=== PATIENT | male | born 1985 | race Caucasian/White ===

== ENCOUNTER 2018-01-06 19:03 | Emergency (ER) | payer OTHER, SELFPAY ==
[2018-01-06 19:08] VITALS: BP 146/83; PULSE 90; RESP 18; TEMP 36.7; O2SAT 99; BMI 29.5
--- NOTE | 2018-01-06 19:36 | ED_ITS ---
HPI - Back Pain/Injury General Chief Complaint: Back Pain/Injury Stated Complaint: BACK PAIN Time Seen by Provider: 01/06/18 19:27 Source: patient and RN notes reviewed Limitations: no limitations History of Present Illness HPI Narrative: Patient is a 32-year-old male who presents with ongoing back pain and left leg numbness. He had surgery in October with Dr. wang he developed a subcutaneous hematoma which eventrally did drain. He has had ongoing numbness in his left leg since even before the surgery. Over the past week he has had increased weakness in his 2nd 3rd and 4th toes. He started working again and sitting at a desk for long periods of time along with sitting in the car. He was seen by Dr. wang this week who is aware of the weakness in his toes. He has had some urinary retention today, but able to urinate. No fever or chills. MD Complaint: back pain Onset (ago): week(s) Location: lumbar spine Radiation: left leg Related Data Home Medications Medication Instructions Recorded Confirmed gabapentin 600 mg PO BID 01/06/18 01/06/18 Previous Rx's Medication Instructions Recorded hydrocodone-acetaminophen [[place]] 2 tab PO Q6H PRN #14 tab 01/06/18 prednisone 20 mg PO DAILY #5 tab 01/06/18 Allergies Allergy/AdvReac Type Severity Reaction Status Date / Time bee venom protein (honey bee) Allergy Unknown Verified 01/06/18 19:12 [BEE VENOM PROTEIN (HONEY BEE)] Tetanus Vaccines and Toxoid Allergy Unknown Verified 01/06/18 19:12 [TETANUS VACCINES AND TOXOID] Review of Systems Review of Systems All systems reviewed & are unremarkable except as noted in HPI and below Constitutional Denies chills, Denies fever(s), Denies lethargy and Denies weakness Cardiovascular Denies chest pain, Denies irregular heart rhythm, Denies lightheadedness, Denies palpitations, Denies dyspnea, Denies dyspnea on exertion and Denies orthopnea Respiratory Denies cough, Denies dyspnea, Denies dyspnea on exertion and Denies wheezing Gastrointestinal Gastrointestinal: Denies abdominal pain, Denies change in bowel habits, Denies diarrhea, Denies nausea and Denies vomiting Genitourinary Comments: Urinary retention Musculoskeletal Reports as per HPI Integumentary/Breasts Comments: Swelling at incision site from hematoma seems to be improving Neurologic Reports radicular pain (Left leg), Reports sensory deficit (Left leg) and Denies weakness Endocrine Denies palpitations Allergic/Immunologic Denies wheezing PFSH Surgical History S/P laminectomy (Acute) Social History Smoking Status: Current every day smoker Exam Const General: cooperative and well developed Nutritional Appearance: well nourished Orientation: alert, awake, oriented x3 and not confused Neck Neck: normal visual inspection, trachea midline, No lymphadenopathy, No midline deformity and No JVD Lymphatic: No lymphedema Resp Effort & Inspection: normal respiratory effort, able to speak in complete sentences, no respiratory distress and no use of accessory muscles Auscultation: clear to auscultation bilaterally, no rales, no rhonchi and no wheezes Cardio Rate: regular rate Rhythm: regular rhythm Heart Sounds: no click, no gallops, no murmurs and no rubs Pulses: normal peripheral pulses Back/Spine/Pelvis Thoracic/Lumbar Spine: surgical scar(s) present (mild swelling at site ) and No lumbar spinal tenderness Other: He is actually tender across his lower back more on the left than the right no rales vertebral tenderness or step-off. Skin General: No erythema and scars (Lumbar) Rashes: no rashes Other: His incision site is clean and dry there is of small amount of swelling which patient says has gone down a lot. MDM - Back Pain/Injury MDM Narrative Medical decision making narrative: The patient's pain has improved some. Mild leukocytosis no fever very minimal elevation of CRP Wanted an MRI unfortunately not available. He is having worsening ongoing symptoms but no urinary retention or urinary incontinence. He also does not have saddle anesthesia. Not concerned for cauda equina or epidural abscess at this time. CT confirms that he does have some narrowing. L4-L5 and L5-S1 neural foraminal narrowing. Patient says that they have known about this since before the surgery. At this time patient okay to discharge home follow up with Orthopedics and get outpatient MRI. Medical Records Attestation: I reviewed the patient's medical records. Lab Data Attestation: I reviewed the patient's lab results. Result diagrams: 01/06/18 20:30 01/06/18 20:30 Lab Results 01/06/18 01/06/18 01/06/18 Range/Units 20:30 20:30 20:35 WBC 11.4 H (4.5-11.0) X10^3/uL RBC 4.89 (4.5-5.9) X10^6/uL Hgb 14.5 (13.5-17.5) g/dL Hct 42.0 (41-53) % MCV 85.9 (80-100) fL MCH 29.6 (26-34) PG MCHC 34.5 (30-36) % RDW 13.4 (11.6-14.8) % Plt Count 190 (150-400) X10^3/uL Neut % (Auto) 78.4 H (50-75) % Lymph % (Auto) 13.1 L (25-40) % [place] % (Auto) 6.4 (3-14) % Eos % (Auto) 1.7 L (2-4) % Baso % (Auto) 0.4 (0-2) % Neut # (Auto) 8900 H (4624-0101) /uL ESR 4 (0-15) MM/HR Sodium 142 (137-145) mmol/L Potassium 4.4 (3.4-5.1) mmol/L Chloride 100.0 (98-107) mmol/L Carbon Dioxide 34.0 H (22-32) mmol/L BUN 20.0 (9-20) mg/dL Creatinine 1.10 (0.66-1.25) mg/dL Estimated GFR > 60.0 (>60) mL/min BUN/Creatinine Ratio 18.2 (6-22) Glucose 109 H (70-100) mg/dL Calcium 9.1 (8.4-10.2) mg/dL Total Bilirubin 0.5 (0.2-1.3) mg/dL AST 51 (17-59) IU/L ALT 85 H (21-72) IU/L Alkaline Phosphatase 67 (38-126) U/L C-Reactive Protein 1.8 H (<1.0) mg/dL Total Protein 7.1 (6.3-8.2) g/dL Albumin 3.9 (3.5-5.0) g/dL Globulin 3.2 (1.7-4.1) g/dL Albumin/Globulin Ratio 1.2 (1.0-2.8) Urine Color Yellow Urine Appearance Clear Urine pH 6.0 (4.5-8.0) Ur Specific [place] 1.015 (1.000-1.035) Urine Protein Negative (NEGATIVE) Urine Glucose (UA) Negative (NEGATIVE) g/dL Urine Ketones Negative (NEGATIVE) Urine Occult Blood Negative (NEGATIVE) Urine Nitrate Positive H (NEGATIVE) Urine Bilirubin Negative (NEGATIVE) Urine Urobilinogen 0.2 (0.2) E.U./dL Ur Leukocyte Esterase Negative (NEGATIVE) Amorphous Sediment 2+ Ur Culture Indicated? Specimen cultured Micro UA Comment Not Reportable Imaging Data CT lumbar with contrast: Radiologist's impression: TECHNIQUE: After the administration of intravenous Isovue contrast, 3 mm thick sections acquired through the levels of interest. Sagittal and coronal reformats were then constructed. For radiation dose reduction, the following was used: automated exposure control. COMPARISON: None. FINDINGS: Image quality: Excellent. Bones: Postsurgical changes compatible with L5-S1 left laminotomy noted. There is normal alignment and curvature. Fracture or subluxation. Multilevel degenerative changes are noted. L4-L5 and L5-S1 facet arthropathy. No definite central stenosis. Degenerative changes may be causing significant bilateral L4-L5 and L5-S1 neural foraminal narrowing. Soft tissues: No paraspinous fluid collections., Aorta is normal caliber. Visualized portions of the kidneys are normal. Visualized bowel loops are normal. IMPRESSION: 1. Postsurgical changes compatible with L5-S1 left laminotomy. 2. No paraspinous fluid collection or paraspinous abscess. Please note epidural abscess or epidural hematoma cannot be clearly excluded by CT imaging. 3. Possible significant bilateral L4-L5 and L5-S1 neuroforaminal narrowing. Recommend MRI of the lumbar spine for definitive characterization when clinically feasible. 4. No fracture. No acute osseous lesion. Dictated by: Sheri Poole MD, PhD on 01/06/2018 at 21:45 Course Orders Ordered: ED Orders 01/06/18 20:30 C-Reactive Protein Quant Stat Complete Blood Count AUTO DIFF Stat Comprehensive Metabolic Panel Stat Erythrocyte Sedimentation Rate Stat 01/06/18 20:35 Urinalysis and Microscopic Stat 01/06/18 20:36 CT lumbar spine w con Stat Discontinued Medications Hydrocodone Bitart/Acetaminophen (Vicodin Prepack) 1 bottle MISC SEEINSTR ONE Stop: 01/06/18 22:20 Last Admin: 01/06/18 22:31 Dose: 1 bottle Dexamethasone (Decadron) 10 mg IV NOW ONE Stop: 01/06/18 20:30 Last Admin: 01/06/18 20:58 Dose: 10 mg Morphine Sulfate (Morphine) 4 mg IV NOW ONE Stop: 01/06/18 20:30 Last Admin: 01/06/18 20:58 Dose: 4 mg Last Vital Signs Temp 98.1 F 01/06/18 19:08 Pulse 62 01/06/18 21:59 Resp 12 01/06/18 21:59 BP 104/56 L 01/06/18 21:59 Pulse Ox 100 01/06/18 21:59 Discharge Plan Departure Patient Disposition: Home, Self-Care Clinical Impression: Radiculopathy due to lumbar intervertebral disc disorder Discharge Date/Time: 01/06/18 22:52 Interventions: ED Discharge Assessment Last Done: 01/06/18 22:48 Instructions: Lumbar Radiculopathy Activity Restrictions/Additional Instructions: *You have been diagnosed with lumbar radiculopathy the with postoperative pain *What to do: Will require outpatient MRI with Orthopedics. *Take medications as directed -increase gabapentin to 3 times a day *Follow up with your primary care provider in 2-3 days, call Orthopedics 1st thing tomorrow morning for follow-up as soon as possible *Return to ER if you should have loss of urine or inability to urinate, fever more than 100.4, increasing weakness or any new, worsening or concerning symptoms Prescriptions: New hydrocodone-acetaminophen [[place]] 5-325 mg tablet 2 tab PO Q6H PRN (Reason: pain, severe) Qty: 14 RF: 0 prednisone 20 mg tablet 20 mg PO DAILY Qty: 5 RF: 0 No Action gabapentin 600 mg Tablet 600 mg PO BID RF: 0 Referrals: Jer Hook MD [Primary Care Provider] - (Needs MRI. Need appointment [facility]) Stand Alone Forms: Work/School Restrictions
--- NOTE | 2018-01-06 20:36 | DI.CT.S_ITS ---
PROCEDURE: CT LUMBAR SPINE W CON INDICATIONS: increased pain and weakness, left leg, post surgery 11/14 TECHNIQUE: After the administration of intravenous Isovue contrast, 3 mm thick sections acquired through the levels of interest. Sagittal and coronal reformats were then constructed. For radiation dose reduction, the following was used: automated exposure control. COMPARISON: None. FINDINGS: Image quality: Excellent. Bones: Postsurgical changes compatible with L5-S1 left laminotomy noted. There is normal alignment and curvature. Fracture or subluxation. Multilevel degenerative changes are noted. L4-L5 and L5-S1 facet arthropathy. No definite central stenosis. Degenerative changes may be causing significant bilateral L4-L5 and L5-S1 neural foraminal narrowing. Soft tissues: No paraspinous fluid collections., Aorta is normal caliber. Visualized portions of the kidneys are normal. Visualized bowel loops are normal. IMPRESSION: 1. Postsurgical changes compatible with L5-S1 left laminotomy. 2. No paraspinous fluid collection or paraspinous abscess. Please note epidural abscess or epidural hematoma cannot be clearly excluded by CT imaging. 3. Possible significant bilateral L4-L5 and L5-S1 neuroforaminal narrowing. Recommend MRI of the lumbar spine for definitive characterization when clinically feasible. 4. No fracture. No acute osseous lesion. Dictated by: Sheri Poole MD, PhD on 01/06/2018 at 21:45 Approved by: Sheri Poole MD, PhD on 01/06/2018 at 21:51
[2018-01-06 20:40] LABS: Add Manual Diff / Slide Review NO; Basophils Percent Auto 0.4 % (0-2); Eosinophils Percent Auto 1.7 % (2-4); Hemoglobin 14.5 g/dL (13.5-17.5); Lymphocytes Percent Auto 13.1 % (25-40); Mean Corpuscular HGB Conc 34.5 % (30-36); Mean Corpuscular Hemoglobin 29.6 PG (26-34); Mean Corpuscular Volume 85.9 fL (80-100); Monocytes Percent Auto 6.4 % (3-14); Neutrophils Absolute Auto 8900 /uL (3000-5900); Neutrophils Percent Auto 78.4 % (50-75); Platelet Count 190 X10^3/uL (150-400); Red Blood Cell Count 4.89 X10^6/uL (4.5-5.9); Red Cell Distribution Width 13.4 % (11.6-14.8); White Blood Cell Count 11.4 X10^3/uL (4.5-11.0)
[2018-01-06 20:53] LABS: Alanine Aminotransferase 85 IU/L (21-72); Albumin 3.9 g/dL (3.5-5.0); Albumin Globulin Ratio 1.2 (1.0-2.8); Alkaline Phosphatase 67 U/L (38-126); Aspartate Aminotransferase 51 IU/L (17-59); BUN Creatinine Ratio 18.2 (6-22); Bilirubin Total 0.5 mg/dL (0.2-1.3); C-Reactive Protein Quant 1.8 mg/dL (<1.0); Calcium 9.1 mg/dL (8.4-10.2); Estimated Glomerular Filt Rate > 60.0 mL/min (>60); Globulin 3.2 g/dL (1.7-4.1); Glucose 109 mg/dL (70-100); HEMOLYSIS < 15 (0-50); Potassium 4.4 mmol/L (3.4-5.1); Sodium 142 mmol/L (137-145); Total Protein 7.1 g/dL (6.3-8.2)
[2018-01-06 20:54] LABS: Erythrocyte Sedimentation Rate 4 MM/HR (0-15)
[2018-01-06] MEDS: MORPHINE 4 MG/ML VIAL IV (20:58)
[2018-01-06] MEDS: DEXAMETHASONE 10 MG/ML VIAL IV (20:58)
[2018-01-06 21:47] LABS: Appearance Urine UA CLEAR; Bilirubin Urine UA NEGATIVE (NEGATIVE); Color Urine UA YELLOW; Glucose Urine UA NEGATIVE (NEGATIVE); Ketones Urine UA NEGATIVE (NEGATIVE); Leukocyte Esterase Urine UA NEGATIVE (NEGATIVE); Nitrite Urine UA POSITIVE (NEGATIVE); Occult Blood Urine UA NEGATIVE (NEGATIVE); Protein Urine UA NEGATIVE (NEGATIVE); Specific Gravity Urine UA 1.015 (1.000-1.035); Urobilinogen Urine UA 0.2 E.U./dL (0.2)
[2018-01-06 21:59] VITALS: BP 104/56; PULSE 62; RESP 12; O2SAT 100
[2018-01-06 22:00] LABS: Amorphous Sediment Urine 2+
[2018-01-06 22:01] LABS: Culture Indicated Urine Specimen Cultured
[2018-01-06] MEDS: HYDROCODONE/ACET 5/325 PREPACK 1 BOTTLE MISC (22:31)
== END 2018-01-06 22:52 | disposition home or self-care (01) ==
PROVIDERS: Emergency Provider Emergency Medicine; PCP Orthopaedic Surgery
DX: M51.16 Intervertebral disc disorders with radiculopathy, lumbar region (principal)
CPT/HCPCS: 36591; 51798; 72132; 80053; 81001; 85025; 85651; 86140; 87086; 96374; 96375; 99283; 99284; J1100; J2270; Q9967

== ENCOUNTER → 2018-08-08 06:16 | Outpatient (CLI) | payer OTHER, SELFPAY ==
--- NOTE | 2018-08-08 | DI.MRI.S_ITS ---
PROCEDURE: MR LUMBAR SPINE WO/W CON INDICATIONS: INTERVETEBRAL DISC DISORDER WITH RADICULOPATHY LUM TECHNIQUE: Noncontrast sagittal T1 spin echo and T2 fast spin echo, sagittal STIR, axial T1 and T2 fast spin echo through the lumbar spine. In cases with scoliosis, additional coronal T2 fast spin echo may be performed. After the administration of contrast, sagittal and axial T1 spin echo with fat saturation through the lumbar spine. COMPARISON: [facility] [place], CR, XR LUMBAR SPINE 2 OR 3 VIEWS, 10/06/2017, 9:21. [facility] [place], MR, MR LUMBAR SPINE WITH/WITHOUT CONTRAST, 01/18/2018, 11:47. [facility], CT, CT LUMBAR SPINE W CON, 01/06/2018, 21:15. [facility], MR, MR LUMBAR SPINE WITHOUT CONTRAST, 10/22/2017, 12:49. FINDINGS: Image quality: Excellent. Alignment and curvature: There is grade one anterolisthesis at L4-L5. Marrow: Marrow is of normal overall signal. No acute vertebral body compression fractures. There are Schmorl's nodes scattered in the lower thoracic spine (inferior endplate of T11 and T12 ) and lumbar spine (superior endplate of L1 and L2). No suspicious marrow enhancement. Spinal cord: Conus medullaris terminates at the L1 level. Visualized spinal cord demonstrates normal signal, without suspicious enhancement. Paraspinous soft tissues: No paravertebral masses or abnormal enhancement. T12-L1: Mild loss of disc height and disc signal. There is mild posterior disc bulge and small left posterior paramedian disc protrusion. Mild central canal stenosis, changed. No foraminal stenosis. L1-L2: Mild loss of disc height and disc signal. There is mild posterior disc bulge. Mild central canal stenosis, changed. No foraminal stenosis. L2-L3: Mild loss of disc height and disc desiccation. There is diffuse posterior disc bulge. Mild bilateral facet arthropathy. The central canal is mildly narrowed. Mild bilateral foraminal stenosis. There is no significant change from the last exam. L3-L4: Preserved disc height and disc signal. There is minimal posterior disc bulge. Moderate bilateral facet arthropathy and mild hypertrophy of ligamentum flavum. The central canal is patent. Moderate bilateral foraminal stenosis, slightly increased compared to the last exam. L4-L5: Mild loss of disc height and disc desiccation. There is broad posterior disc bulge. Mild bilateral facet arthropathy. The central canal is mildly narrowed. Moderate bilateral foraminal stenosis. Mildly increased central canal and foraminal stenosis compared to the last exam. L5-S1: Left hemilaminectomy. Mild loss of disc height and moderate disc desiccation. There is broad posterior disc bulge and disc protrusion. There is a posterior central annular fissure. Mild to-moderate bilateral facet arthropathy. The central canal is [id number] narrowed, unchanged. Moderate-to severe bilateral foraminal stenosis, unchanged. IMPRESSION: 1. Multilevel degenerative disc disease and facet arthropathy as described. 2. Multilevel central canal stenosis, [id number] at L5-S1 and mild at T12-L1, L1-L2, L2-L3 and L4-L5. 3. Multilevel foraminal stenosis as described, [id number] at L5-S1 bilaterally, and moderate at L2-L3 bilaterally, L3-L4 bilaterally and L4-L5 bilaterally. Dictated by: Cyn Suarez M.D. on 08/08/2018 at 14:39 Approved by: Cyn Suarez M.D. on 08/08/2018 at 15:03
== END ==
PROVIDERS: PCP Orthopaedic Surgery; Visit Provider Orthopaedic Surgery
DX: M51.16 Intervertebral disc disorders with radiculopathy, lumbar region (principal); M51.17 Intervertebral disc disorders with radiculopathy, lumbosacral region; M47.26 Other spondylosis with radiculopathy, lumbar region; M47.27 Other spondylosis with radiculopathy, lumbosacral region; M48.05 Spinal stenosis, thoracolumbar region; M48.07 Spinal stenosis, lumbosacral region; M48.061 Spinal stenosis, lumbar region without neurogenic claudication
CPT/HCPCS: 72158; A9579

== ENCOUNTER 2018-10-02 03:48 | Emergency (ER) | payer OTHER, SELFPAY | END 2018-10-02 04:11 | disposition left against medical advice (07) | LOC: ED 03:57 | PROVIDERS: PCP Orthopaedic Surgery | DX: R89.9 Unspecified abnormal finding in specimens from other organs, systems and tissues (principal) | CPT/HCPCS: 99282 ==

== ENCOUNTER 2019-02-15 12:21 | Emergency (ER) | payer SELFPAY ==
[2019-02-15 12:29] VITALS: BP 132/80; TEMP 36.8
[2019-02-15 12:35] VITALS: BMI 29.8
--- NOTE | 2019-02-15 12:36 | ED.ABDPAIN ---
HPI - Abdominal Pain <ALEXSANDER Pierce - Last Filed: 02/15/19 14:45> General Chief Complaint: Abdominal Pain Stated Complaint: Difficulty defecating Time Seen by Provider: 02/15/19 12:29 Source: patient Mode of arrival: ambulatory Limitations: no limitations History of Present Illness HPI narrative: 33-year-old male with a history of back surgery, presents emergency department today stating that 1 month ago he defecated a piece of metal that he in this from his back surgery, states the metal piece was about 3in. in length. Since then he has been having increasing constipation with mucousy and bright red blood in his stools. Associated left lower quadrant 10/10 cramping abdominal pain that occurs before defecation and is worse after defecation. Denies swelling or pain in his testicles, vomiting, nausea, chest pain, shortness of breath, episodes diarrhea, or headaches. MD complaint: abdominal pain Onset (ago): week(s) Pain Consistency: intermittent Location: LLQ Severity: moderate Severity scale (1-10): >10 Quality: cramping Radiation: none Exacerbating factors: bowel movement Related Data Home Medications Medication Instructions Recorded Confirmed gabapentin 600 mg PO BID 01/06/18 02/15/19 Allergies Allergy/AdvReac Type Severity Reaction Status Date / Time bee venom protein (honey bee) Allergy Unknown Verified 01/06/18 19:12 [BEE VENOM PROTEIN (HONEY BEE)] Tetanus Vaccines and Toxoid Allergy Unknown Verified 01/06/18 19:12 [TETANUS VACCINES AND TOXOID] Review of Systems <ALEXSANDER Pierce - Last Filed: 02/15/19 14:45> Review of Systems REVIEW OF SYSTEMS: GENERAL: Denies fever or chills. HENT: No head trauma, hearing loss or sore throat. EYES: No loss of vision, double vision, eye pain, or irritation. CARDIOVASCULAR: No chest pain or syncope. RESPIRATORY: No shortness of breath or cough. GASTROINTESTINAL: Complains of abdominal pain, see HPI. GENITOURINARY: No flank pain or dysuria. No testicle swelling. See HPI. MUSCULOSKELETAL: No pain, weakness, or deformities. INTEGUMENTARY: No rash, lesions, or pruritus. NEURO: No numbness, tingling, memory loss, or confusion. PSYCH: No behavior or mood changes. PFSH <ALEXSANDER Pierce - Last Filed: 02/15/19 14:45> Surgical History S/P laminectomy (Acute) Social History Smoking Status: Current every day smoker Social History Smoking Status: Current every day smoker Exam <ALEXSANDER Pierce - Last Filed: 02/15/19 14:45> Initial Vital Signs Initial Vital Signs: Vital Signs Temperature 98.3 F 02/15/19 12:29 Blood Pressure 132/80 02/15/19 12:29 PHYSICAL EXAMINATION: GENERAL: Well groomed, alert, and cooperative Answers questions promptly and appropriately. Vital signs noted. HENT: Normocephalic, atraumatic. EYES: Conjunctiva pink, sclera white, no periorbital swelling. Patient tearful during exam. LYMPH: No lymphadenopathy. CHEST: Normal to inspection and without deformities. CARDIOVASCULAR: S1 and S2 sounds normal. Regular rate and rhythm, no murmurs, clicks, or bruits. No pedal edema. RESPIRATORY: Normal respiratory rate, trachea midline, airway patent. No stridor, nasal flaring or accessory muscle use. Lungs are clear in all greer without wheeze, rhonchi, or crackles. GASTROINTESTINAL: Bowel sounds normoactive. Tenderness with deep palpation to left lower quadrant, no rebound tenderness, no right lower quadrant tenderness. No masses palpated. RECTAL: No hemorrhoids observed or palpated, no fissures or lesions. Patient reported significant pain during rectal exam, no stool was palpated. RN was present during rectal exam. Patient gives stool seen, 2 small round hard masses stool were given, the bladder mucus was seen on stool. EXAM: No hernias palpated along groin. Testicles will not red or swollen, no tenderness. RN was present during exam. MUSCULOSKELETAL: Normal gait and coordination. Equal tone and mass bilaterally. EXTREMITIES: CMS intact. Moves all extremities independently. SKIN: Warm, dry, soft, appropriate color for ethnicity. No lesions, rashes, or wounds. NEURO: Alert and Oriented X 3. Good coordination. No ataxia, or sensory deficits, or cognitive issues. PSYCH: Appropriate affect, the patient tearful. <Darrell [place], DO - Last Filed: 02/15/19 18:05> Initial Vital Signs Initial Vital Signs: Vital Signs Temperature 98.3 F 02/15/19 12:29 Blood Pressure 132/80 02/15/19 12:29 Course <Lou HagerALEXSANDER [place] - Last Filed: 02/15/19 14:45> Orders Ordered: ED Orders 02/15/19 13:15 Complete Blood Count AUTO DIFF Stat Comprehensive Metabolic Panel Stat Lipase Stat 02/15/19 13:20 Stool Culture Stat 02/15/19 13:24 CT abdomen pelvis w con Stat Discontinued Medications Sodium Chloride (Normal Saline 0.9%) 1,000 mls @ 150 mls/hr IV CONT ADEBAYO Last Infusion: 02/15/19 14:42 Dose: 0 mls/hr Admin: 02/15/19 13:20 Dose: 150 mls/hr Ketorolac Tromethamine (Toradol) 30 mg IV NOW ONE Stop: 02/15/19 14:07 Last Admin: 02/15/19 14:09 Dose: 30 mg Morphine Sulfate (Morphine) 2 mg IV NOW ONE Stop: 02/15/19 13:30 Last Admin: 02/15/19 13:32 Dose: 2 mg Reevaluation(s) Reevaluation #1: She reports feeling slightly better after morphine and Toradol. Understands follow-up instructions. Consultations Consultation #1: Patient staffed with Dr. Martinez. Vital Signs - 8 hr 02/15/19 12:29 02/15/19 13:46 02/15/19 14:35 Temperature 98.3 F Pulse Rate 91 H 89 Respiratory Rate 16 16 Blood Pressure 105/60 Blood Pressure [Right Arm] 132/80 117/75 Pulse Oximetry 98 <Darrell Martinez DO - Last Filed: 02/15/19 18:05> Orders Ordered: ED Orders 02/15/19 13:15 Complete Blood Count AUTO DIFF Stat Comprehensive Metabolic Panel Stat Lipase Stat 02/15/19 13:20 Stool Culture Stat 02/15/19 13:24 CT abdomen pelvis w con Stat Discontinued Medications Sodium Chloride (Normal Saline 0.9%) 1,000 mls @ 150 mls/hr IV CONT ADEBAYO Last Infusion: 02/15/19 14:42 Dose: 0 mls/hr Admin: 02/15/19 13:20 Dose: 150 mls/hr Ketorolac Tromethamine (Toradol) 30 mg IV NOW ONE Stop: 02/15/19 14:07 Last Admin: 02/15/19 14:09 Dose: 30 mg Morphine Sulfate (Morphine) 2 mg IV NOW ONE Stop: 02/15/19 13:30 Last Admin: 02/15/19 13:32 Dose: 2 mg Vital Signs - 8 hr 02/15/19 12:29 02/15/19 13:46 02/15/19 14:35 Temperature 98.3 F Pulse Rate 91 H 89 Respiratory Rate 16 16 Blood Pressure 105/60 Blood Pressure [Right Arm] 132/80 117/75 Pulse Oximetry 98 MDM - Abdominal Pain <ALEXSANDER Pierce - Last Filed: 02/15/19 14:45> Medical Records Attestation: I reviewed the patient's medical records. Lab Data Attestation: I reviewed the patient's lab results. Result diagrams: 02/15/19 13:15 02/15/19 13:15 Lab Results 02/15/19 02/15/19 Range/Units 13:15 13:15 WBC 8.7 (4.5-11.0) X10^3/uL RBC 4.99 (4.5-5.9) X10^6/uL Hgb 13.8 (13.5-17.5) g/dL Hct 42.9 (41-53) % MCV 85.8 (80-100) fL MCH 27.6 (26-34) PG MCHC 32.2 (30-36) % RDW 13.5 (11.6-14.8) % Plt Count 216 (150-400) X10^3/uL Neut % (Auto) 76.0 H (50-75) % Lymph % (Auto) 14.8 L (25-40) % Carson % (Auto) 6.6 (3-14) % Eos % (Auto) 2.5 (2-4) % Baso % (Auto) 0.1 (0-2) % Neut # (Auto) 6600 (8713-2524) /uL Lymph # (Auto) 1300 (4347-7210) /uL Carson # (Auto) 600 (0-900) /uL Eos # (Auto) 200 (0-450) /uL Baso # (Auto) 0 (0-100) /uL Sodium 142 (137-145) mmol/L Potassium 4.4 (3.4-5.1) mmol/L Chloride 103 (98-107) mmol/L Carbon Dioxide 29 (22-32) mmol/L BUN 16 (9-20) mg/dL Creatinine 0.90 (0.66-1.25) mg/dL Estimated GFR > 60.0 (>60) mL/min BUN/Creatinine Ratio 17.8 (6-22) Glucose 98 (70-100) mg/dL Calcium 9.0 (8.4-10.2) mg/dL Total Bilirubin 0.6 (0.2-1.3) mg/dL AST 43 (17-59) IU/L ALT 56 (21-72) IU/L Alkaline Phosphatase 67 (38-126) U/L Total Protein 7.1 (6.3-8.2) g/dL Albumin 4.0 (3.5-5.0) g/dL Globulin 3.1 (1.7-4.1) g/dL Albumin/Globulin Ratio 1.3 (1.0-2.8) Lipase 49 (23-300) U/L Imaging Data CT scan - abdomen: Radiologist's impression: , [place] [address] CT Scan Report Signed Patient: Jericho Parsons [facility]#: [id number] : 1985Acct:[id number] Age/Sex: 33 / MDate of Service: 02/15/19 Loc: ED Accession Number: [id number] Procedure: CT abdomen pelvis w con Ordering Provider: Lou Amado PROCEDURE: CT ABDOMEN PELVIS W CON INDICATIONS: RLQ abd pain worse with BM TECHNIQUE: After the administration of intravenous contrast, 5 mm thick sections acquired from the diaphragm to the symphysis. 5 mm coronal and sagittal reformats were acquired. For radiation dose reduction, the following was used: automated exposure control, adjustment of mA and/or kV according to patient size. COMPARISON: [facility], CT, ABDOMEN/PELVIS WITH CONTRAST, 04/19/2017, 14:58. FINDINGS: Image quality: Excellent. ABDOMEN: Lung bases: Lung bases are clear. Heart size is normal. Solid organs: Liver is normal in size and enhancement. Gallbladder is unremarkable. There is mild central intrahepatic biliary ductal prominence, increased from the previous study. No pancreatic mass. No pancreatic ductal dilatation. The pancreas enhances normally. Spleen is normal in size and enhancement. No adrenal nodules. Kidneys demonstrate normal size and enhancement, without hydronephrosis. Peritoneum and bowel: Bowel loops demonstrate normal wall thickness and caliber. No free fluid or air. Moderately large fecal debris in the colon. No findings suspicious for acute appendicitis. Nodes and vessels: No retroperitoneal or mesenteric adenopathy by size criteria. Aorta and inferior vena cava are normal in size. Miscellaneous: No ventral hernias. PELVIS: Genitourinary: Bladder wall thickness is normal. Miscellaneous: No inguinal hernias or adenopathy. Bones: Again noted are multiple right iliac exostoses, unchanged. No vertebral body compression fractures. IMPRESSION: 1. Moderately large fecal debris. 2. Mildly prominent central intrahepatic biliary ducts, increased from the previous study, without evidence of any obstructing mass lesion. 3. Stable right iliac exostoses. Dictated by: Shravan Roa M.D. on 02/15/2019 at 13:48 Approved by: Shravan Roa M.D. on 02/15/2019 at 13:54 MDM Narrative Medical decision making narrative: Patient's history about swallowing a 3in piece of metal remains questionable. I suspect his pain is caused by constipation as evidenced by his hard stool, imaging on CT, and history and physical. However, I cannot rule out colitis, lesions, or food allergies, so further testing was suggested to the patient. Stool culture is pending to look for parasites, however have a low suspicion of this due to complaint of constipation versus diarrhea. While CT imaging shows an increased dilation of the biliary duct since last scan, patient does not exhibit right upper quadrant pain and liver enzymes and lipase were within normal limits, additionally no obstruction was seen on CT. Less likely diverticulitis due to lack of findings on CT, lack of fever, lack white blood cell count, lack of history of diverticulosis. All patient reports blood in stool intermittently, no blood was seen stool sample, hematocrit and hemoglobin remained stable, patient does not exhibit symptoms of low blood volume. <Darrell Martinez DO - Last Filed: 02/15/19 18:05> Lab Data Lab Results 02/15/19 02/15/19 Range/Units 13:15 13:15 WBC 8.7 (4.5-11.0) X10^3/uL RBC 4.99 (4.5-5.9) X10^6/uL Hgb 13.8 (13.5-17.5) g/dL Hct 42.9 (41-53) % MCV 85.8 (80-100) fL MCH 27.6 (26-34) PG MCHC 32.2 (30-36) % RDW 13.5 (11.6-14.8) % Plt Count 216 (150-400) X10^3/uL Neut % (Auto) 76.0 H (50-75) % Lymph % (Auto) 14.8 L (25-40) % Carson % (Auto) 6.6 (3-14) % Eos % (Auto) 2.5 (2-4) % Baso % (Auto) 0.1 (0-2) % Neut # (Auto) 6600 (7674-5908) /uL Lymph # (Auto) 1300 (8863-2450) /uL Carson # (Auto) 600 (0-900) /uL Eos # (Auto) 200 (0-450) /uL Baso # (Auto) 0 (0-100) /uL Sodium 142 (137-145) mmol/L Potassium 4.4 (3.4-5.1) mmol/L Chloride 103 (98-107) mmol/L Carbon Dioxide 29 (22-32) mmol/L BUN 16 (9-20) mg/dL Creatinine 0.90 (0.66-1.25) mg/dL Estimated GFR > 60.0 (>60) mL/min BUN/Creatinine Ratio 17.8 (6-22) Glucose 98 (70-100) mg/dL Calcium 9.0 (8.4-10.2) mg/dL Total Bilirubin 0.6 (0.2-1.3) mg/dL AST 43 (17-59) IU/L ALT 56 (21-72) IU/L Alkaline Phosphatase 67 (38-126) U/L Total Protein 7.1 (6.3-8.2) g/dL Albumin 4.0 (3.5-5.0) g/dL Globulin 3.1 (1.7-4.1) g/dL Albumin/Globulin Ratio 1.3 (1.0-2.8) Lipase 49 (23-300) U/L Discharge Plan Departure Patient Disposition: Home Clinical Impression: Constipation Qualifiers: Constipation type: unspecified constipation type Qualified Code(s): K59.00 - Constipation, unspecified Abdominal pain Qualifiers: Abdominal location: left lower quadrant Qualified Code(s): R10.32 - Left lower quadrant pain Discharge Date/Time: 02/15/19 14:45 Interventions: ED Discharge Assessment Last Done: 02/15/19 14:35 Instructions: DI for Abdominal Pain-Adult, DI for Constipation Activity Restrictions/Additional Instructions: Thank you for entrusting me with your care today. As discussed, your CT scan does not show any alarming findings that would explain the pain you're having. However, it is important to follow up with your primary care provider and or business architect for further testing if your pain continues. I have also ordered a stool culture that will take a few days to come back, if it is positive we will call you. Please take the docusate Colace that you have, at least 1 a day with a large glass of water. This medication will help soften your stool, it is not a laxative so it should not give you crampy abdominal pain. Return to the emergency department if he develops fevers, uncontrolled vomiting, large amount of dark tarry stools, chest pain, or shortness of breath. Prescriptions: No Action gabapentin 600 mg Tablet 600 mg PO BID RF: 0 Referrals: Jer Taveras MD [Non-Staff] - <Darrell Martinez DO - Last Filed: 02/15/19 18:05> Cosign ED Attending Kristian Attestation: I was immediately available in the department for consultation. Documentation has been reviewed. I agree with assessment and plan.
--- NOTE | 2019-02-15 12:39 | ED_ITS ---
HPI - Abdominal Pain <ALEXSANDER Pierce - Last Filed: 02/15/19 14:45> General Chief Complaint: Abdominal Pain Stated Complaint: Difficulty defecating Time Seen by Provider: 02/15/19 12:29 Source: patient Mode of arrival: ambulatory Limitations: no limitations History of Present Illness HPI narrative: 33-year-old male with a history of back surgery, presents emergency department today stating that 1 month ago he defecated a piece of metal that he in this from his back surgery, states the metal piece was about 3in. in length. Since then he has been having increasing constipation with mucousy and bright red blood in his stools. Associated left lower quadrant 10/10 cramping abdominal pain that occurs before defecation and is worse after defecation. Denies swelling or pain in his testicles, vomiting, nausea, chest pain, shortness of breath, episodes diarrhea, or headaches. MD complaint: abdominal pain Onset (ago): week(s) Pain Consistency: intermittent Location: LLQ Severity: moderate Severity scale (1-10): >10 Quality: cramping Radiation: none Exacerbating factors: bowel movement Related Data Home Medications Medication Instructions Recorded Confirmed gabapentin 600 mg PO BID 01/06/18 02/15/19 Allergies Allergy/AdvReac Type Severity Reaction Status Date / Time bee venom protein (honey bee) Allergy Unknown Verified 01/06/18 19:12 [BEE VENOM PROTEIN (HONEY BEE)] Tetanus Vaccines and Toxoid Allergy Unknown Verified 01/06/18 19:12 [TETANUS VACCINES AND TOXOID] Review of Systems <ALEXSANDER Pierce - Last Filed: 02/15/19 14:45> Review of Systems REVIEW OF SYSTEMS: GENERAL: Denies fever or chills. HENT: No head trauma, hearing loss or sore throat. EYES: No loss of vision, double vision, eye pain, or irritation. CARDIOVASCULAR: No chest pain or syncope. RESPIRATORY: No shortness of breath or cough. GASTROINTESTINAL: Complains of abdominal pain, see HPI. GENITOURINARY: No flank pain or dysuria. No testicle swelling. See HPI. MUSCULOSKELETAL: No pain, weakness, or deformities. INTEGUMENTARY: No rash, lesions, or pruritus. NEURO: No numbness, tingling, memory loss, or confusion. PSYCH: No behavior or mood changes. PFSH <ALEXSANDER Pierce - Last Filed: 02/15/19 14:45> Surgical History S/P laminectomy (Acute) Social History Smoking Status: Current every day smoker Social History Smoking Status: Current every day smoker Exam <ALEXSANDER Pierce - Last Filed: 02/15/19 14:45> Initial Vital Signs Initial Vital Signs: Vital Signs Temperature 98.3 F 02/15/19 12:29 Blood Pressure 132/80 02/15/19 12:29 PHYSICAL EXAMINATION: GENERAL: Well groomed, alert, and cooperative Answers questions promptly and appropriately. Vital signs noted. HENT: Normocephalic, atraumatic. EYES: Conjunctiva pink, sclera white, no periorbital swelling. Patient tearful during exam. LYMPH: No lymphadenopathy. CHEST: Normal to inspection and without deformities. CARDIOVASCULAR: S1 and S2 sounds normal. Regular rate and rhythm, no murmurs, clicks, or bruits. No pedal edema. RESPIRATORY: Normal respiratory rate, trachea midline, airway patent. No stridor, nasal flaring or accessory muscle use. Lungs are clear in all greer without wheeze, rhonchi, or crackles. GASTROINTESTINAL: Bowel sounds normoactive. Tenderness with deep palpation to l eft lower quadrant, no rebound tenderness, no right lower quadrant tenderness. No masses palpated. RECTAL: No hemorrhoids observed or palpated, no fissures or lesions. Patient reported significant pain during rectal exam, no stool was palpated. RN was present during rectal exam. Patient gives stool seen, 2 small round hard masses stool were given, the bladder mucus was seen on stool. EXAM: No hernias palpated along groin. Testicles will not red or swollen, no tenderness. RN was present during exam. MUSCULOSKELETAL: Normal gait and coordination. Equal tone and mass bilaterally. EXTREMITIES: CMS intact. Moves all extremities independently. SKIN: Warm, dry, soft, appropriate color for ethnicity. No lesions, rashes, or wounds. NEURO: Alert and Oriented X 3. Good coordination. No ataxia, or sensory deficits, or cognitive issues. PSYCH: Appropriate affect, the patient tearful. <Darrell Martinez DO - Last Filed: 02/15/19 18:05> Initial Vital Signs Initial Vital Signs: Vital Signs Temperature 98.3 F 02/15/19 12:29 Blood Pressure 132/80 02/15/19 12:29 Course <Lou HagerALEXSANDER mont[place] - Last Filed: 02/15/19 14:45> Orders Ordered: ED Orders 02/15/19 13:15 Complete Blood Count AUTO DIFF Stat Comprehensive Metabolic Panel Stat Lipase Stat 02/15/19 13:20 Stool Culture Stat 02/15/19 13:24 CT abdomen pelvis w con Stat Discontinued Medications Sodium Chloride (Normal Saline 0.9%) 1,000 mls @ 150 mls/hr IV CONT ADEBAYO Last Infusion: 02/15/19 14:42 Dose: 0 mls/hr Admin: 02/15/19 13:20 Dose: 150 mls/hr Ketorolac Tromethamine (Toradol) 30 mg IV NOW ONE Stop: 02/15/19 14:07 Last Admin: 02/15/19 14:09 Dose: 30 mg Morphine Sulfate (Morphine) 2 mg IV NOW ONE Stop: 02/15/19 13:30 Last Admin: 02/15/19 13:32 Dose: 2 mg Reevaluation(s) Reevaluation #1: She reports feeling slightly better after morphine and Toradol. Understands follow-up instructions. Consultations Consultation #1: Patient staffed with Dr. Martinez. Vital Signs - 8 hr 02/15/19 12:29 02/15/19 13:46 02/15/19 14:35 Temperature 98.3 F Pulse Rate 91 H 89 Respiratory Rate 16 16 Blood Pressure 105/60 Blood Pressure [Right Arm] 132/80 117/75 Pulse Oximetry 98 <Darrell Martinez DO - Last Filed: 02/15/19 18:05> Orders Ordered: ED Orders 02/15/19 13:15 Complete Blood Count AUTO DIFF Stat Comprehensive Metabolic Panel Stat Lipase Stat 02/15/19 13:20 Stool Culture Stat 02/15/19 13:24 CT abdomen pelvis w con Stat Discontinued Medications Sodium Chloride (Normal Saline 0.9%) 1,000 mls @ 150 mls/hr IV CONT ADEBAYO Last Infusion: 02/15/19 14:42 Dose: 0 mls/hr Admin: 02/15/19 13:20 Dose: 150 mls/hr Ketorolac Tromethamine (Toradol) 30 mg IV NOW ONE Stop: 02/15/19 14:07 Last Admin: 02/15/19 14:09 Dose: 30 mg Morphine Sulfate (Morphine) 2 mg IV NOW ONE Stop: 02/15/19 13:30 Last Admin: 02/15/19 13:32 Dose: 2 mg Vital Signs - 8 hr 02/15/19 12:29 02/15/19 13:46 02/15/19 14:35 Temperature 98.3 F Pulse Rate 91 H 89 Respiratory Rate 16 16 Blood Pressure 105/60 Blood Pressure [Right Arm] 132/80 117/75 Pulse Oximetry 98 MDM - Abdominal Pain <ALEXSANDER Pierce - Last Filed: 02/15/19 14:45> Medical Records Attestation: I reviewed the patient's medical records. Lab Data Attestation: I reviewed the patient's lab results. Result diagrams: 02/15/19 13:15 02/15/19 13:15 Lab Results 02/15/19 02/15/19 Range/Units 13:15 13:15 WBC 8.7 (4.5-11.0) X10^3/uL RBC 4.99 (4.5-5.9) X10^6/uL Hgb 13.8 (13.5-17.5) g/dL Hct 42.9 (41-53) % MCV 85.8 (80-100) fL MCH 27.6 (26-34) PG MCHC 32.2 (30-36) % RDW 13.5 (11.6-14.8) % Plt Count 216 (150-400) X10^3/uL Neut % (Auto) 76.0 H (50-75) % Lymph % (Auto) 14.8 L (25-40) % [place] % (Auto) 6.6 (3-14) % Eos % (Auto) 2.5 (2-4) % Baso % (Auto) 0.1 (0-2) % Neut # (Auto) 6600 (3141-1715) /uL Lymph # (Auto) 1300 (7714-9583) /uL [place] # (Auto) 600 (0-900) /uL Eos # (Auto) 200 (0-450) /uL Baso # (Auto) 0 (0-100) /uL Sodium 142 (137-145) mmol/L Potassium 4.4 (3.4-5.1) mmol/L Chloride 103 (98-107) mmol/L Carbon Dioxide 29 (22-32) mmol/L BUN 16 (9-20) mg/dL Creatinine 0.90 (0.66-1.25) mg/dL Estimated GFR > 60.0 (>60) mL/min BUN/Creatinine Ratio 17.8 (6-22) Glucose 98 (70-100) mg/dL Calcium 9.0 (8.4-10.2) mg/dL Total Bilirubin 0.6 (0.2-1.3) mg/dL AST 43 (17-59) IU/L ALT 56 (21-72) IU/L Alkaline Phosphatase 67 (38-126) U/L Total Protein 7.1 (6.3-8.2) g/dL Albumin 4.0 (3.5-5.0) g/dL Globulin 3.1 (1.7-4.1) g/dL Albumin/Globulin Ratio 1.3 (1.0-2.8) Lipase 49 (23-300) U/L Imaging Data CT scan - abdomen: Radiologist's impression: , [place] [address] CT Scan Report Signed Patient: Jericho Parsons [facility]#: [id number] : 1985Acct:[id number] Age/Sex: 33 / MDate of Service: 02/15/19 Loc: ED Accession Number: [id number] Procedure: CT abdomen pelvis w con Ordering Provider: Lou Amado PROCEDURE: CT ABDOMEN PELVIS W CON INDICATIONS: RLQ abd pain worse with BM TECHNIQUE: After the administration of intravenous contrast, 5 mm thick sections acquired from the diaphragm to the symphysis. 5 mm coronal and sagittal reformats were acquired. For radiation dose reduction, the following was used: automated exposure control, adjustment of mA and/or kV according to patient size. COMPARISON: [facility], CT, ABDOMEN/PELVIS WITH CONTRAST, 04/19/2017, 14:58. FINDINGS: Image quality: Excellent. ABDOMEN: Lung bases: Lung bases are clear. Heart size is normal. Solid organs: Liver is normal in size and enhancement. Gallbladder is unremarkable. There is mild central intrahepatic biliary ductal prominence, increased from the previous study. No pancreatic mass. No pancreatic ductal dilatation. The pancreas enhances normally. Spleen is normal in size and enhancement. No adrenal nodules. Kidneys demonstrate normal size and enhancement, without hydronephrosis. Peritoneum and bowel: Bowel loops demonstrate normal wall thickness and caliber. No free fluid or air. Moderately large fecal debris in the colon. No findings suspicious for acute appendicitis. Nodes and vessels: No retroperitoneal or mesenteric adenopathy by size criteria. Aorta and inferior vena cava are normal in size. Miscellaneous: No ventral hernias. PELVIS: Genitourinary: Bladder wall thickness is normal. Miscellaneous: No inguinal hernias or adenopathy. Bones: Again noted are multiple right iliac exostoses, unchanged. No vertebral body compression fractures. IMPRESSION: 1. Moderately large fecal debris. 2. Mildly prominent central intrahepatic biliary ducts, increased from the previous study, without evidence of any obstructing mass lesion. 3. Stable right iliac exostoses. Dictated by: Shravan Roa M.D. on 02/15/2019 at 13:48 Approved by: Shravan Roa M.D. on 02/15/2019 at 13:54 MDM Narrative Medical decision making narrative: Patient's history about swallowing a 3in piece of metal remains questionable. I suspect his pain is caused by con stipation as evidenced by his hard stool, imaging on CT, and history and physical. However, I cannot rule out colitis, lesions, or food allergies, so further testing was suggested to the patient. Stool culture is pending to look for parasites, however have a low suspicion of this due to complaint of constipation versus diarrhea. While CT imaging shows an increased dilation of the biliary duct since last scan, patient does not exhibit right upper quadrant pain and liver enzymes and lipase were within normal limits, additionally no obstruction was seen on CT. Less likely diverticulitis due to lack of findings on CT, lack of fever, lack white blood cell count, lack of history of diverticulosis. All patient reports blood in stool intermittently, no blood was seen stool sample, hematocrit and hemoglobin remained stable, patient does not exhibit symptoms of low blood volume. <Darrell Martinez DO - Last Filed: 02/15/19 18:05> Lab Data Lab Results 02/15/19 02/15/19 Range/Units 13:15 13:15 WBC 8.7 (4.5-11.0) X10^3/uL RBC 4.99 (4.5-5.9) X10^6/uL Hgb 13.8 (13.5-17.5) g/dL Hct 42.9 (41-53) % MCV 85.8 (80-100) fL MCH 27.6 (26-34) PG MCHC 32.2 (30-36) % RDW 13.5 (11.6-14.8) % Plt Count 216 (150-400) X10^3/uL Neut % (Auto) 76.0 H (50-75) % Lymph % (Auto) 14.8 L (25-40) % [place] % (Auto) 6.6 (3-14) % Eos % (Auto) 2.5 (2-4) % Baso % (Auto) 0.1 (0-2) % Neut # (Auto) 6600 (3293-7466) /uL Lymph # (Auto) 1300 (5327-4484) /uL [place] # (Auto) 600 (0-900) /uL Eos # (Auto) 200 (0-450) /uL Baso # (Auto) 0 (0-100) /uL Sodium 142 (137-145) mmol/L Potassium 4.4 (3.4-5.1) mmol/L Chloride 103 (98-107) mmol/L Carbon Dioxide 29 (22-32) mmol/L BUN 16 (9-20) mg/dL Creatinine 0.90 (0.66-1.25) mg/dL Estimated GFR > 60.0 (>60) mL/min BUN/Creatinine Ratio 17.8 (6-22) Glucose 98 (70-100) mg/dL Calcium 9.0 (8.4-10.2) mg/dL Total Bilirubin 0.6 (0.2-1.3) mg/dL AST 43 (17-59) IU/L ALT 56 (21-72) IU/L Alkaline Phosphatase 67 (38-126) U/L Total Protein 7.1 (6.3-8.2) g/dL Albumin 4.0 (3.5-5.0) g/dL Globulin 3.1 (1.7-4.1) g/dL Albumin/Globulin Ratio 1.3 (1.0-2.8) Lipase 49 (23-300) U/L Discharge Plan Departure Patient Disposition: Home Clinical Impression: Constipation Qualifiers: Constipation type: unspecified constipation type Qualified Code(s): K59.00 - Constipation, unspecified Abdominal pain Qualifiers: Abdominal location: left lower quadrant Qualified Code(s): R10.32 - Left lower quadrant pain Discharge Date/Time: 02/15/19 14:45 Interventions: ED Discharge Assessment Last Done: 02/15/19 14:35 Instructions: DI for Abdominal Pain-Adult, DI for Constipation Activity Restrictions/Additional Instructions: Thank you for entrusting me with your care today. As discussed, your CT scan does not show any alarming findings that would explain the pain you're having. However, it is important to follow up with your primary care provider and or aircraft tool maker for further testing if your pain continues. I have also ordered a stool culture that will take a few days to come back, if it is positiv e we will call you. Please take the docusate Colace that you have, at least 1 a day with a large glass of water. This medication will help soften your stool, it is not a laxative so it should not give you crampy abdominal pain. Return to the emergency department if he develops fevers, uncontrolled vomiting, large amount of dark tarry stools, chest pain, or shortness of breath. Prescriptions: No Action gabapentin 600 mg Tablet 600 mg PO BID RF: 0 Referrals: Jer Taveras MD [Non-Staff] - <Darrell Martinez DO - Last Filed: 02/15/19 18:05> Cosign ED Attending Kristian Attestation: I was immediately available in the department for consultation. Documentation has been reviewed. I agree with assessment and plan.
[2019-02-15] MEDS: SODIUM CHLORIDE 0.9% 1,000 ML 150 ML IV (13:20)
[2019-02-15 13:22] LABS: Add Manual Diff / Slide Review NO; Basophils Absolute Auto 0 /uL (0-100); Basophils Percent Auto 0.1 % (0-2); Eosinophils Absolute Auto 200 /uL (0-450); Eosinophils Percent Auto 2.5 % (2-4); Hematocrit 42.9 % (41-53); Hemoglobin 13.8 g/dL (13.5-17.5); Lymphocytes Absolute Auto 1300 /uL (1100-4500); Lymphocytes Percent Auto 14.8 % (25-40); Mean Corpuscular HGB Conc 32.2 % (30-36); Mean Corpuscular Hemoglobin 27.6 PG (26-34); Mean Corpuscular Volume 85.8 fL (80-100); Monocytes Absolute Auto 600 /uL (0-900); Monocytes Percent Auto 6.6 % (3-14); Neutrophils Absolute Auto 6600 /uL (1500-7000); Platelet Count 216 X10^3/uL (150-400); Red Blood Cell Count 4.99 X10^6/uL (4.5-5.9); Red Cell Distribution Width 13.5 % (11.6-14.8); White Blood Cell Count 8.7 X10^3/uL (4.5-11.0)
--- NOTE | 2019-02-15 13:24 | DI.CT.S_ITS ---
PROCEDURE: CT ABDOMEN PELVIS W CON INDICATIONS: RLQ abd pain worse with BM TECHNIQUE: After the administration of intravenous contrast, 5 mm thick sections acquired from the diaphragm to the symphysis. 5 mm coronal and sagittal reformats were acquired. For radiation dose reduction, the following was used: automated exposure control, adjustment of mA and/or kV according to patient size. COMPARISON: [facility], CT, ABDOMEN/PELVIS WITH CONTRAST, 04/19/2017, 14:58. FINDINGS: Image quality: Excellent. ABDOMEN: Lung bases: Lung bases are clear. Heart size is normal. Solid organs: Liver is normal in size and enhancement. Gallbladder is unremarkable. There is mild central intrahepatic biliary ductal prominence, increased from the previous study. No pancreatic mass. No pancreatic ductal dilatation. The pancreas enhances normally. Spleen is normal in size and enhancement. No adrenal nodules. Kidneys demonstrate normal size and enhancement, without hydronephrosis. Peritoneum and bowel: Bowel loops demonstrate normal wall thickness and caliber. No free fluid or air. Moderately large fecal debris in the colon. No findings suspicious for acute appendicitis. Nodes and vessels: No retroperitoneal or mesenteric adenopathy by size criteria. Aorta and inferior vena cava are normal in size. Miscellaneous: No ventral hernias. PELVIS: Genitourinary: Bladder wall thickness is normal. Miscellaneous: No inguinal hernias or adenopathy. Bones: Again noted are multiple right iliac exostoses, unchanged. No vertebral body compression fractures. IMPRESSION: 1. Moderately large fecal debris. 2. Mildly prominent central intrahepatic biliary ducts, increased from the previous study, without evidence of any obstructing mass lesion. 3. Stable right iliac exostoses. Dictated by: Shravan Roa M.D. on 02/15/2019 at 13:48 Approved by: Shravan Roa M.D. on 02/15/2019 at 13:54
[2019-02-15] MEDS: MORPHINE 2 MG/ML INJ IV (13:32)
[2019-02-15 13:33] LABS: Alanine Aminotransferase 56 IU/L (21-72); Albumin Globulin Ratio 1.3 (1.0-2.8); Alkaline Phosphatase 67 U/L (38-126); Aspartate Aminotransferase 43 IU/L (17-59); BUN Creatinine Ratio 17.8 (6-22); Bilirubin Total 0.6 mg/dL (0.2-1.3); Blood Urea Nitrogen 16 mg/dL (9-20); Carbon Dioxide 29 mmol/L (22-32); Chloride 103 mmol/L (98-107); Estimated Glomerular Filt Rate > 60.0 mL/min (>60); Globulin 3.1 g/dL (1.7-4.1); Glucose 98 mg/dL (70-100); HEMOLYSIS < 15 (0-50); Lipase 49 U/L (23-300); Potassium 4.4 mmol/L (3.4-5.1); Sodium 142 mmol/L (137-145); Total Protein 7.1 g/dL (6.3-8.2)
--- NOTE | 2019-02-15 13:34 | PC.NURSE ---
Patient to CT with tech, transported by stretcher. Medicated before departure to CT with morphine
[2019-02-15 13:46] VITALS: BP 117/75; PULSE 91; RESP 16
[2019-02-15] MEDS: KETOROLAC 60 MG/2 ML VIAL 30 MG IV (14:09)
[2019-02-15 14:35] VITALS: BP 105/60; PULSE 89; RESP 16; O2SAT 98
== END 2019-02-15 14:45 | disposition home or self-care (01) ==
PROVIDERS: Emergency Provider Nurse Practitioner; Family Provider Orthopaedic Surgery
DX: K59.00 Constipation, unspecified (principal); R10.32 Left lower quadrant pain
CPT/HCPCS: 74177; 80053; 83690; 85025; 87045; 87177; 87899; 96361; 96374; 96375; 99283; 99284; J1885; J2270; Q9967

== ENCOUNTER 2019-04-30 09:40 | Emergency (ER) | payer OTHER, SELFPAY ==
[2019-04-30 09:45] VITALS: BP 138/87; PULSE 93; RESP 20; TEMP 36.6; O2SAT 98; BMI 29.2
--- NOTE | 2019-04-30 09:48 | ED.GENADULT ---
HPI - General Adult General Chief complaint: Abdominal Pain Stated complaint: Fit for detention Time Seen by Provider: 04/30/19 09:43 Source: patient and police Mode of arrival: other (Police) Limitations: no limitations History of Present Illness HPI narrative: Patient is a 33-year-old male brought in by police for fit for confinement. Initially patient was found sleeping [place] the [place] [address]. Police were dispatched. EMS also arrived and the patient declined care not stating that he had any complaints. When the please confirm that the patient did have warrants he started complained of abdominal pain. States that he has been vomiting. Was concerned about food poisoning. Related Data Home Medications Medication Instructions Recorded Confirmed gabapentin 600 mg PO BID 01/06/18 02/15/19 Previous Rx's Medication Instructions Recorded ondansetron 4 mg PO Q6H PRN #10 tab 04/30/19 Allergies Allergy/AdvReac Type Severity Reaction Status Date / Time bee venom protein (honey bee) Allergy Unknown Verified 01/06/18 19:12 [BEE VENOM PROTEIN (HONEY BEE)] Tetanus Vaccines and Toxoid Allergy Unknown Verified 01/06/18 19:12 [TETANUS VACCINES AND TOXOID] Review of Systems Constitutional Constitutional: Denies fever(s) Respiratory Respiratory: Denies cough Gastrointestinal Gastrointestinal: Reports abdominal pain, Denies change in stool character, Reports nausea and Reports vomiting Musculoskeletal Musculoskeletal: Denies myalgias and Denies arthralgias Integumentary/Breasts Skin/Breast: Denies rash Hematologic/Lymphatic Hematologic/Lymphatic: Denies easy bleeding and Denies easy bruising [facility] Medical History Back pain (Acute) Surgical History S/P laminectomy (Acute) Social History Smoking Status: Current every day smoker Social History Smoking Status: Current every day smoker Exam Const General: cooperative and well groomed Orientation: alert, awake and oriented x3 Resp Effort & Inspection: normal respiratory effort Auscultation: clear to auscultation bilaterally Cardio Rate: regular rate Rhythm: regular rhythm GI Inspection: non-distended Palpation: soft and No firm Skin Lesions: no lesions Rashes: no rashes Neuro General: alert and awake Cognition: normal cognition Extrem General: capillary refill normal Medical Decision Making MDM Narrative Medical decision making narrative: Patient is benign abdominal exam. He is not clinically dehydrated. Patient did ask for IV fluids here in the ER however I do not feel that this is necessary. Patient is fit for confinement. We will send with a prescription for Zofran if he needs this while he is in detention. Discharge Plan Departure Patient Disposition: Home Clinical Impression: Nausea & vomiting Qualifiers: Vomiting type: unspecified Vomiting Intractability: unspecified Qualified Code(s): R11.2 - Nausea with vomiting, unspecified Instructions: DI for Nausea -- Adult Activity Restrictions/Additional Instructions: Your fit for confinement. The prescription that your given can be administered to you by the medical staff at the detention if needed to treat your symptoms. Prescriptions: New ondansetron 4 mg tablet,disintegrating 4 mg PO Q6H PRN (Reason: nausea and vomiting) Qty: 10 RF: 0 No Action gabapentin 600 mg Tablet 600 mg PO BID RF: 0
== END 2019-04-30 09:57 | disposition home or self-care (01) ==
LOC: ED 01-04 10:24
PROVIDERS: Emergency Provider Emergency Medicine; Family Provider Orthopaedic Surgery
DX: Z02.89 Encounter for other administrative examinations (principal); R11.2 Nausea with vomiting, unspecified; R10.9 Unspecified abdominal pain
CPT/HCPCS: 99281; 99282

== ENCOUNTER 2020-06-02 18:36 | Emergency (ER) | payer OTHER, MEDICAID, SELFPAY ==
[2020-06-02 18:41] VITALS: BP 145/95; PULSE 95; RESP 20; TEMP 36.4; O2SAT 99
[2020-06-02] MEDS: PROPARACAINE 0.5% OPHTH SOL 1 DROPS EYE-BOTH (18:50)
--- NOTE | 2020-06-02 18:59 | DI.CT.S_ITS ---
PROCEDURE: CT HEAD/BRAIN WO CON INDICATIONS: headaches, vision change TECHNIQUE: Noncontrast 4.5 mm thick angled axial sections acquired from the foramen magnum to the vertex, with coronal and sagittal reformats. For radiation dose reduction, the following was used: automated exposure control, adjustment of mA and/or kV according to patient size. COMPARISON: None. FINDINGS: Image quality: Excellent. CSF spaces: Basal cisterns are patent. No extra-axial fluid collections. Ventricles are normal in size and shape. Brain: No midline shift. No intracranial masses or hemorrhage. Aguilar-white matter interface is normal. Skull and face: Calvarium and visualized facial bones are intact, without suspicious lesions. Sinuses: Visualized sinuses and mastoids are clear. IMPRESSION: No acute intracranial process. Dictated by: Cleveland Arias M.D. on 06/02/2020 at 19:29 Approved by: Cleveland Arias M.D. on 06/02/2020 at 19:30
--- NOTE | 2020-06-02 19:06 | ED_ITS ---
HPI - Eye Problem General Chief complaint: Eye Problems Stated complaint: seeing tracers in vision, ringing in R ear Time Seen by Provider: 06/02/20 18:38 Source: patient Mode of arrival: Ambulatory Limitations: no limitations History of Present Illness HPI Narrative: 35M smoker with no chronic medical problems presents by himself with the chief complaint of at least a month of ongoing various symptoms including plugged and fullness of his right ear, vision change in his R eye, and occasional headache. The biggest, and most bothersome symptom he reports today is that he has occasional floaters and waving vision change in his right eye. He states this is been going on for days to weeks. As stated, he denies any injury. He does not were contacts, has not been using UV lights and denies any history of the same. He denies focal neurologic findings such as numbness, weakness or tingling. He denies any current headache and does not seem to think that the headache or the vision episodes seem to be correlated. He is concerned that this could be due to repeated head injuries while playing football for 7 years Related Data Home Medications Medication Instructions Recorded Confirmed gabapentin 600 mg PO BID 01/06/18 02/15/19 Previous Rx's Medication Instructions Recorded ondansetron 4 mg PO Q6H PRN #10 tab 04/30/19 Allergies Allergy/AdvReac Type Severity Reaction Status Date / Time bee venom protein (honey bee) Allergy Unknown Verified 01/06/18 19:12 [BEE VENOM PROTEIN (HONEY BEE)] Tetanus Vaccines and Toxoid Allergy Unknown Verified 01/06/18 19:12 [TETANUS VACCINES AND TOXOID] Review of Systems Constitutional Constitutional: Denies chills, Denies fatigue, Denies fever(s), Denies frequent falls, Reports headache(s), Denies lethargy and Denies weakness Eyes Eyes: Denies change in vision, Denies eye discharge, Reports floaters, Denies i rritation, Denies loss of vision and Reports seeing flashes ENT Ears, Nose, Mouth, and Throat: Denies change in voice, Denies dizziness, Reports headache(s), Denies neck pain, Denies sore throat and Denies throat swelling Cardiovascular Cardiovascular: Denies chest pain, Denies irregular heart rhythm, Denies lightheadedness, Denies palpitations, Denies dyspnea, Denies dyspnea on exertion and Denies orthopnea Respiratory Respiratory: Denies cough, Denies dyspnea, Denies dyspnea on exertion and Denies wheezing Gastrointestinal Gastrointestinal: Denies abdominal pain, Denies change in bowel habits, Denies diarrhea, Denies nausea and Denies vomiting Musculoskeletal Musculoskeletal: Denies neck pain and Denies numbness Integumentary/Breasts Skin/Breast: Denies pruritus, Denies erythema, Denies rash and Denies wounds Neurologic Neurologic: Denies behavioral changes, Denies confusion, Denies dizziness, Denies frequent falls, Reports headache(s), Denies loss of vision, Denies numbness and Denies weakness Psychiatric Psychiatric: Denies anxiety, Denies behavioral changes, Denies confusion, Denies depression, Denies homicidal ideation and Denies suicidal ideation Endocrine Endocrine: Denies fatigue, Denies flushing and Denies palpitations Hematologic/Lymphatic Hematologic/Lymphatic: Denies easy bruising Allergic/Immunologic Allergic/Immunologic: Denies urticaria, Denies throat swelling and Denies wheezing Patient History Medical History Back pain (Acute) Surgical History S/P laminectomy (Acute) Social History Smoking Status: Current every day smoker Smoking Status: Current every day smoker alcohol intake frequency: 0-2 drinks per day Substance Use Type: marijuana Exam Narrative Exam Narrative: GENERAL: [35] year old patient appears stated age. Well- nourished, well-developed patient, in mild distress. HEAD: Atraumatic. Normocephalic. EYES: Pupils equal round and reactive. Extraocular motions intact. No scleral icterus. No injection or drainage. No abnormal findings on funduscopic or slit lamp exam is. No fluorescein uptake under UV light. [place] notes pressure of 15 and right eye. No significant change in visual acuity as noted in nurse's notes ENT: Nose without bleeding, purulent drainage. Throat without erythema, tonsillar hypertrophy or exudate. Airway patent. NECK: Trachea midline. Non tender CARDIOVASCULAR: Regular rate and rhythm without murmurs, gallops, or rubs. RESPIRATORY: Clear to auscultation. Breath sounds equal bilaterally. No wheezes, rales, or rhonchi. GASTROINTESTINAL: Abdomen soft, non-tender, nondistended. EXTREMITIES: No edema or joint tenderness. BACK: Nontender without deformity or crepitance. No flank tenderness. NEURO: AOx3. SKIN: No rash or erythema of visible areas NIH Stroke Scale 1a. LOC: Patient is alert and keenly responsive (0) 1b. LOC Questions: Patient answers both LOC questions accurately (0) 1c. LOC Commands: Patient performs both tasks correctly (0) 2. Best Gaze: Normal (0) 3. Visual: No visual loss (0) 4. Facial palsy: Normal symmetrical movements (0) 5. Motor arm: No drift (0) 6. Motor leg: No drift (0) 7. Limb ataxia: Absent (0) 8. Sensory: Normal (0) 9. Best language: No aphasia; normal (0) 10. Dysarthria: Normal (0) 11. Extinction and inattention: No abnormality (0) NIHSS: 0 Initial Vital Signs Initial Vital Signs: Vital Signs Temperature 97.6 F 06/02/20 18:41 Pulse Rate 95 H 06/02/20 18:41 Respiratory Rate 20 06/02/20 18:41 Blood Pressure 145/95 H 06/02/20 18:41 Pulse Oximetry 99 06/02/20 18:41 Course Orders Ordered: ED Orders 06/02/20 18:59 CT head/brain wo con Stat Discontinued Medications Ondansetron HCl (Zofran Odt Prepack) 1 bottle MISC SEEINSTR ONE Stop: 06/02/20 19:38 Last Admin: 06/02/20 19:55 Dose: 1 bottle Documented by: YOSI Proparacaine HCl (Parcaine 0.5% Ophth Kaylynn) 1 drops EYE-BOTH NOW ONE Stop: 06/02/20 18:39 Last Admin: 06/02/20 18:50 Dose: 1 drop Documented by: QUINTIN Vital Signs Vital signs: Vital Signs - 8 hr 06/02/20 18:41 Temperature 97.6 F Pulse Rate 95 H Respiratory Rate 20 Blood Pressure 145/95 H Pulse Oximetry 99 Discharge Plan Departure Patient Disposition: Home Clinical Impression: Vitreous floaters of right eye Acute otalgia Qualifiers: Laterality: right Qualified Code(s): H92.01 - Otalgia, right ear Discharge Date/Time: 06/02/20 19:58 Instructions: DI for Eye Floaters Activity Restrictions/Additional Instructions: *You have been diagnosed with [vision change of your right eye *What to do: *Follow up with Ophthalmology, call tomorrow morning for an appointment. Let them know you were seen in the Emergency Department and that we ask that you be seen in follow up *Return to ER if you should have any new, worsening or concerning symptoms Prescriptions: No Action gabapentin 600 mg Tablet 600 mg PO BID RF: 0 ondansetron 4 mg tablet,disintegrating 4 mg PO Q6H PRN (Reason: nausea and vomiting) Qty: 10 RF: 0 Referrals: Bishnu Bruno MD [Physician] -
[2020-06-02] MEDS: ONDANSETRON 4 MG ODT PREPACK 1 BOTTLE MISC (19:55)
== END 2020-06-02 19:58 | disposition home or self-care (01) ==
PROVIDERS: Emergency Provider Emergency Medicine; Family Provider Orthopaedic Surgery
DX: H43.391 Other vitreous opacities, right eye (principal); H92.01 Otalgia, right ear; R51.9 Headache, unspecified
CPT/HCPCS: 70450; 99283; 99284

== ENCOUNTER 2020-08-19 14:44 | Emergency (ER) | payer OTHER, MEDICAID, SELFPAY ==
[2020-08-19 16:53] VITALS: BP 110/51; PULSE 90; RESP 16; TEMP 37.7; O2SAT 98; BMI 31.1
--- NOTE | 2020-08-19 19:24 | PC.NURSE ---
PT CALLED FROM [facility] MULTIPLE TIMES WITHOUT SUCCESS.
== END 2020-08-19 18:55 | disposition left against medical advice (07) ==
PROVIDERS: Emergency Provider Emergency Medicine; Family Provider Orthopaedic Surgery
CPT/HCPCS: 99281

== ENCOUNTER 2020-08-21 03:13 | Observation (INO) | payer OTHER, MEDICAID, SELFPAY ==
[2020-08-21] VITALS (12 sets, daily range): BP systolic 120–153; BP diastolic 63–90; PULSE 54–114; RESP 16–20; TEMP 36.4–36.7; O2SAT 85–100; BMI 33.0
--- NOTE | 2020-08-21 03:16 | ED.SKABFB ---
HPI - Skin/Abscess/Foreign Bdy General Chief complaint: Skin/Abscess/Foreign Body Stated complaint: left leg pain/ infection Time Seen by Provider: 08/21/20 03:15 Source: patient and family Mode of arrival: Ambulatory Limitations: no limitations History of Present Illness HPI narrative: 35-year-old male smoker, former user of IV drugs presents with a chief complaint of gradually worsening left lower extremity pain, swelling, redness and fever over the past 4 days. He suffered a superficial abrasion to his likely moving some objects few days ago and has developed worsening pain and redness ever since. He states that he was helping a friend move bags of trash and the contents weak down to his leg which then became infected. He denies runny nose, sore throat or cough. He denies any chest pain or shortness of breath. He denies any nausea, vomiting or diarrhea. As stated, he has had fever and chills as well as the leg pain. Related Data Home Medications Medication Instructions Recorded Confirmed gabapentin 600 mg PO BID 01/06/18 02/15/19 Previous Rx's Medication Instructions Recorded ondansetron 4 mg PO Q6H PRN #10 tab 04/30/19 Allergies Allergy/AdvReac Type Severity Reaction Status Date / Time bee venom protein (honey bee) Allergy Unknown Verified 01/06/18 19:12 [BEE VENOM PROTEIN (HONEY BEE)] Tetanus Vaccines and Toxoid Allergy Unknown Verified 01/06/18 19:12 [TETANUS VACCINES AND TOXOID] Review of Systems Constitutional Constitutional: Reports chills, Denies fatigue, Reports fever(s), Denies frequent falls, Denies lethargy and Denies weakness Eyes Eyes: Denies change in vision, Denies eye discharge, Denies irritation and Denies loss of vision ENT Ears, Nose, Mouth, and Throat: Denies change in voice, Denies dizziness, Denies neck pain, Denies sore throat and Denies throat swelling Cardiovascular Cardiovascular: Denies chest pain, Denies irregular heart rhythm, Denies lightheadedness, Denies palpitations, Denies dyspnea, Denies dyspnea on exertion and Denies orthopnea Respiratory Respiratory: Denies cough, Denies dyspnea, Denies dyspnea on exertion and Denies wheezing Gastrointestinal Gastrointestinal: Denies abdominal pain, Denies change in bowel habits, Denies diarrhea, Denies nausea and Denies vomiting Musculoskeletal Musculoskeletal: Denies neck pain and Denies numbness Integumentary/Breasts Skin/Breast: Denies pruritus, Reports erythema, Denies rash, Reports skin pain, Reports skin swelling, Reports skin ulcer and Reports wounds Neurologic Neurologic: Denies behavioral changes, Denies confusion, Denies dizziness, Denies frequent falls, Denies loss of vision, Denies numbness and Denies weakness Psychiatric Psychiatric: Denies anxiety, Denies behavioral changes, Denies confusion, Denies depression, Denies homicidal ideation and Denies suicidal ideation Endocrine Endocrine: Denies fatigue, Denies flushing and Denies palpitations Hematologic/Lymphatic Hematologic/Lymphatic: Denies easy bruising Allergic/Immunologic Allergic/Immunologic: Denies urticaria, Denies throat swelling and Denies wheezing Patient History Medical History (Updated 08/21/20 @ 06:55 by Darrell Martinez DO) Back pain Surgical History S/P laminectomy Social History Smoking Status: Current every day smoker Smoking Status: Current every day smoker alcohol intake frequency: 0-2 drinks per day Substance Use Type: marijuana Exam Narrative Exam Narrative: GENERAL: [35] year old patient appears stated age. Well-nourished, well-developed patient, in mild distress. HEAD: Atraumatic. Normocephalic. EYES: Pupils equal round and reactive. ENT: Nose without bleeding, purulent drainage. Throat without erythema, tonsillar hypertrophy or exudate. Airway patent. NECK: Trachea midline. Non tender CARDIOVASCULAR: Tachycardic but regular without murmurs, gallops, or rubs. RESPIRATORY: Clear to auscultation. Breath sounds equal bilaterally. No wheezes, rales, or rhonchi. GASTROINTESTINAL: Abdomen soft, non-tender, nondistended. EXTREMITIES: Left lower extremity with circumferential erythema below the knee and multiple superficial wounds at various stages of healing. No active drainage or fluctuance. BACK: Nontender without deformity or crepitance. No flank tenderness. NEURO: AOx3. SKIN: Otherwise No rash or erythema of visible areas Initial Vital Signs Initial Vital Signs: Vital Signs Pulse Rate 102 H 08/21/20 03:26 Blood Pressure 153/90 H 08/21/20 03:26 Pulse Oximetry 99 08/21/20 03:26 Course Orders Ordered: ED Orders 08/21/20 04:20 D Dimer Stat 08/21/20 05:20 Blood Culture Stat Complete Blood Count AUTO DIFF Stat Comprehensive Metabolic Panel Stat Lactate (Lactic Acid) Stat Procalcitonin Stat 08/21/20 05:35 COVID19 Stat 08/21/20 06:22 US periph venous low extrem lt Stat Discontinued Medications Vancomycin HCl/Dextrose (Vancomycin) 2,000 mg in 400 mls @ 200 mls/hr IV NOW ONE Stop: 08/21/20 05:27 Last Admin: 08/21/20 05:43 Dose: 200 mls/hr Documented by: MEY Lactated Ringer's (Lactated Ringers) 3,135 mls @ 1,045 mls/hr 30 ml/kg infuse over 3 hr (3135 ml) IV NOW ONE Stop: 08/21/20 06:27 Last Admin: 08/21/20 04:46 Dose: 1,045 mls/hr Documented by: MEY Reevaluation(s) Reevaluation #1: given history of substance abuse, there is significant difficulty in obtaining labs/IV access, unable to obtain 2nd culture Time: 04:33 Consultations Consultation #1: hospitalist happy to accept, requests DVT study first Vital Signs Vital signs: Vital Signs - 8 hr 08/21/20 03:26 08/21/20 03:30 08/21/20 03:49 Temperature 98.0 F Pulse Rate 102 H 95 H 114 H Respiratory Rate 16 Blood Pressure 153/90 H 153/90 H Pulse Oximetry 99 100 97 08/21/20 05:27 08/21/20 05:29 08/21/20 05:30 Temperature Pulse Rate 88 95 H Respiratory Rate Blood Pressure 139/75 Pulse Oximetry 85 L 95 99 08/21/20 06:00 08/21/20 06:30 Temperature Pulse Rate 92 H 91 H Respiratory Rate Blood Pressure Pulse Oximetry 98 100 MDM - Skin/Abscess/Foreign Bdy Lab Data Result diagrams: 08/21/20 05:20 08/21/20 05:20 Labs: Lab Results 08/21/20 08/21/20 08/21/20 Range/Units 05:20 05:20 05:20 WBC 10.0 (4.5-11.0) X10^3/uL RBC 4.55 (4.5-5.9) X10^6/uL Hgb 12.6 L (13.5-17.5) g/dL Hct 37.0 L (41-53) % MCV 81.4 (80-100) fL MCH 27.6 (26-34) PG MCHC 33.9 (30-36) % RDW 14.6 (11.6-14.8) % Plt Count 242 (150-400) X10^3/uL Neut % (Auto) 65.7 (50-75) % Lymph % (Auto) 21.3 L (25-40) % [place] % (Auto) 11.2 (3-14) % Eos % (Auto) 1.6 L (2-4) % Baso % (Auto) 0.2 (0-2) % Neut # (Auto) 6500 (3027-0577) /uL Lymph # (Auto) 2100 (1533-5411) /uL [place] # (Auto) 1100 H (0-900) /uL Eos # (Auto) 200 (0-450) /uL Baso # (Auto) 0 (0-100) /uL Sodium 133 L (137-145) mmol/L Potassium 4.0 (3.4-5.1) mmol/L Chloride 101 (98-107) mmol/L Carbon Dioxide 28 (22-32) mmol/L BUN 17 (9-20) mg/dL Creatinine 0.80 (0.66-1.25) mg/dL Estimated GFR > 60.0 (>60) mL/min BUN/Creatinine Ratio 21.3 (6-22) Glucose 134 H (70-100) mg/dL Lactate (0.7-2.1) mmol/L Calcium 8.9 (8.4-10.2) mg/dL Total Bilirubin 0.6 (0.2-1.3) mg/dL AST 42 (17-59) IU/L ALT 36 (<50) IU/L Alkaline Phosphatase 78 (38-126) U/L Total Protein 7.6 (6.3-8.2) g/dL Albumin 3.9 (3.5-5.0) g/dL Globulin 3.7 (1.7-4.1) g/dL Albumin/Globulin Ratio 1.1 (1.0-2.8) Procalcitonin 0.12 (<0.5) ng/mL COVID-19 PCR (Negative) 08/21/20 08/21/20 Range/Units 05:20 05:35 WBC (4.5-11.0) X10^3/uL RBC (4.5-5.9) X10^6/uL Hgb (13.5-17.5) g/dL Hct (41-53) % MCV (80-100) fL MCH (26-34) PG MCHC (30-36) % RDW (11.6-14.8) % Plt Count (150-400) X10^3/uL Neut % (Auto) (50-75) % Lymph % (Auto) (25-40) % [place] % (Auto) (3-14) % Eos % (Auto) (2-4) % Baso % (Auto) (0-2) % Neut # (Auto) (1718-9434) /uL Lymph # (Auto) (3756-6122) /uL [place] # (Auto) (0-900) /uL Eos # (Auto) (0-450) /uL Baso # (Auto) (0-100) /uL Sodium (137-145) mmol/L Potassium (3.4-5.1) mmol/L Chloride (98-107) mmol/L Carbon Dioxide (22-32) mmol/L BUN (9-20) mg/dL Creatinine (0.66-1.25) mg/dL Estimated GFR (>60) mL/min BUN/Creatinine Ratio (6-22) Glucose (70-100) mg/dL Lactate 1.1 (0.7-2.1) mmol/L Calcium (8.4-10.2) mg/dL Total Bilirubin (0.2-1.3) mg/dL AST (17-59) IU/L ALT (<50) IU/L Alkaline Phosphatase (38-126) U/L Total Protein (6.3-8.2) g/dL Albumin (3.5-5.0) g/dL Globulin (1.7-4.1) g/dL Albumin/Globulin Ratio (1.0-2.8) Procalcitonin (<0.5) ng/mL COVID-19 PCR Negative (Negative) Discharge Plan Departure Patient Disposition: Admitted As Inpatient Clinical Impression: Cellulitis of left leg Sepsis Qualifiers: Sepsis type: sepsis due to unspecified organism Sepsis acute organ dysfunction status: unspecified Qualified Code(s): A41.9 - Sepsis, unspecified organism Admit Date/Time: 08/21/20 06:54 Admit Provider: Adarsh Knox
[2020-08-21] MEDS: LACTATED RINGERS 1045 ML IV (04:46)
--- NOTE | 2020-08-21 05:07 | PC.NURSE ---
As I had just started his iv,he was a very difficult insertion due to past iv drug abuse he said,I went to start fluids but he went to the BR to have a BM before I could start the IV.He was in BR for approx. 20 minutes,both DR Martinez and I talked to him through the door during.
[2020-08-21 05:38] LABS: Add Manual Diff / Slide Review NO; Basophils Absolute Auto 0 /uL (0-100); Basophils Percent Auto 0.2 % (0-2); Eosinophils Absolute Auto 200 /uL (0-450); Eosinophils Percent Auto 1.6 % (2-4); Hemoglobin 12.6 g/dL (13.5-17.5); Lymphocytes Absolute Auto 2100 /uL (1100-4500); Lymphocytes Percent Auto 21.3 % (25-40); Mean Corpuscular HGB Conc 33.9 % (30-36); Mean Corpuscular Hemoglobin 27.6 PG (26-34); Mean Corpuscular Volume 81.4 fL (80-100); Monocytes Absolute Auto 1100 /uL (0-900); Monocytes Percent Auto 11.2 % (3-14); Neutrophils Absolute Auto 6500 /uL (1500-7000); Neutrophils Percent Auto 65.7 % (50-75); Platelet Count 242 X10^3/uL (150-400); Red Blood Cell Count 4.55 X10^6/uL (4.5-5.9); Red Cell Distribution Width 14.6 % (11.6-14.8)
[2020-08-21] MEDS: VANCOMYCIN 2,000 MG/400 ML PIGGYBACK 200 MG IV (05:43)
[2020-08-21 05:51] LABS: Alanine Aminotransferase 36 IU/L (<50); Albumin 3.9 g/dL (3.5-5.0); Albumin Globulin Ratio 1.1 (1.0-2.8); Alkaline Phosphatase 78 U/L (38-126); Aspartate Aminotransferase 42 IU/L (17-59); BUN Creatinine Ratio 21.3 (6-22); Bilirubin Total 0.6 mg/dL (0.2-1.3); Blood Urea Nitrogen 17 mg/dL (9-20); Calcium 8.9 mg/dL (8.4-10.2); Carbon Dioxide 28 mmol/L (22-32); Chloride 101 mmol/L (98-107); Estimated Glomerular Filt Rate > 60.0 mL/min (>60); Globulin 3.7 g/dL (1.7-4.1); Glucose 134 mg/dL (70-100); HEMOLYSIS 17 (0-50); Sodium 133 mmol/L (137-145); Total Protein 7.6 g/dL (6.3-8.2)
[2020-08-21 05:55] LABS: Lactate (Lactic Acid) 1.1 mmol/L (0.7-2.1)
[2020-08-21 06:08] LABS: Procalcitonin 0.12 ng/mL (<0.5)
[2020-08-21 06:14] LABS: COVID19 -Nasal RAPID Negative (Negative)
--- NOTE | 2020-08-21 06:22 | DI.US.S_ITS ---
PROCEDURE: US PERIPH VENOUS LOW EXTREM LT INDICATIONS: PAIN, REDNESS, EDEMA TECHNIQUE: Real-time imaging, as well as color and pulse Doppler interrogation, were performed of the lower extremity deep veins from the inguinal ligament to the popliteal fossa. COMPARISON: None. FINDINGS: The common femoral, femoral and popliteal veins are normally compressible, and free of intraluminal thrombus. Color and pulse Doppler demonstrate normal phasic intraluminal flow. There is normal augmentation response to distal compression maneuver. IMPRESSION: No evidence of deep vein thrombosis involving the left lower extremity. Dictated by: Sheri Poole MD, PhD on 08/21/2020 at 8:37 Approved by: Sheri Poole MD, PhD on 08/21/2020 at 8:37
--- NOTE | 2020-08-21 06:26 | PC.NURSE ---
He ate a sandwich and juice.
[2020-08-21 08:19] LABS: Hemoglobin A1C% w Est Avg Glu 5.4 % (4.0-6.0)
[2020-08-21] MEDS: KETOROLAC 10 MG TABLET 15 MG PO (08:32)
[2020-08-21] MEDS: TRAMADOL 50 MG TABLET 100 MG PO (08:32)
[2020-08-21] MEDS: ENOXAPARIN 40 MG/0.4 ML SYRINGE SUBCUT (08:33)
--- NOTE | 2020-08-21 10:15 | PC.NURSE ---
Assess- Patient is groggy and complains of 10/10 pain to his l.hernadez. Area is red with erythema and open area to distal portion of cellulitis area. Given 100mg of oral Tramadol and some oral toradol. Patient is groggy but will wake up and respond. It takes him a minute to wake up. is aware of all of this. She also going to changed his toradol to iv. Patients iv vanco hanging, he will then get another iv antibiotic and have ns infusing at 100cc/hr. He has a bag with him, and debit cards but does not want them put in the safe.
[2020-08-21] MEDS: CEFTRIAXONE 2 GM/50 ML FROZ.PIGGY IV (10:51)
[2020-08-21] MEDS: SODIUM CHLORIDE 0.9% 1,000 ML 100 ML IV (10:51)
--- NOTE | 2020-08-21 14:31 | CM.DANOTE ---
DCP: Case received, EMR reviewed and met with patient. Introduced self and role. Patient was groggy, mumbling some answers. Was able to get some information from patient regarding his baseline activity, and some minimal information on current living situation. DCP assessment completed based on notes in EMR, and some from patient. Patient is a 35 year old male who admitted early this morning to the care of the hospitalist team. PCP: None Payer: confirmed: [facility]. Patient came to the hospital via family vehicle secondary to having increased left leg pain. Patient holds current diagnosis of sepsis. Patient sustained a superficial abrasion to his leg, according to patient, occurred when he was attempting to help his neighbor move an object. Patient is a smoker and former IV drug user. He also uses marijuana. Patient was groggy', during assessment. Asked him if he recently used drugs, and he denied. IV access has been challenging due to his veins collapsing. PICC line may be placed. Asked patient if he had a provider, and he denied. Also asked him who he lived with, but could not understand his response. Patient was falling asleep during the conversation. He did mention, he has an L&I claim, but not for this hospital visit. It is unclear where he used to work, as is states that he is disabled. P: DCP to continue to follow closely, and will be available for any resources needed. PICC line could possibly be placed. The goal would be home with oral ABO, but also depends upon what cultures show. Cata Pina RN/Evs Manager
--- NOTE | 2020-08-21 15:54 | P.HP_ITS ---
History of Present Illness History of Present Illness Date Patient Seen: 08/21/20 Chief complaint: left leg pain/ infection Narrative: Jericho Parsons is a 35-year-old male with a past medical history significant for tobacco dependence, and previous IV drug use reportedly in remission who presented to the ED with progressive worsening left lower extremity pain, swelling, redness for 4 days. He suffered several superficial abrasions to his left lower extremity while helping a friend on a job site clean up trash which reportedly dripped down his leg and move things out of a house. He reports he developed redness, swelling and pain the next day that slowly worsened. He reports he came to the ED a day ago and after waiting several hours he got frustrated and he left. He began spiking a fever of 100? F so he decided to come back to the ED this morning. He is significantly somnolent at the bedside and nods off in mid sentence and appears to be intoxicated slurring his words. He denies current IV drug or any drug use. He reports he is tired because her has not slept in several days. He appears alert and oriented when he is awake. He denies headache, cough, chest pain, shortness of breath, abdominal pain, nausea, vomiting, chills, or myalgias. . Patient History Medical History (Updated 08/21/20 @ 21:22 by Briseida Thomas DO) Back pain Heart murmur IVDU (intravenous drug user) Marijuana use Tobacco dependence Surgical History S/P laminectomy Family & Social History Family History (Updated 08/21/20 @ 21:21 by Briseida Thomas DO) Mother Heart problem Father Medical history unknown Sister Heart problem History of heart bypass surgery Social History: household members spouse Safety & Behavioral: Feels Safe in Current Yes Environment Been Physically Hurt or No Threatened By a Person Suicidal Ideation Description None Suicide Plan Description No Plan Tobacco & Substance use: Tobacco type cigarettes Smoking Status Current some day smoker Smoking packs per day 1 ppd alcohol intake frequency None Substance Use Type marijuana Patient is . He has three children who are healthy. He is currently homeless and living out of his truck. He is from [facility] which is where his immediate family resides. Meds Home Medications and Allergies Allergies Allergy/AdvReac Type Severity Reaction Status Date / Time bee venom protein (honey bee) Allergy Unknown Verified 01/06/18 19:12 [BEE VENOM PROTEIN (HONEY BEE)] Tetanus Vaccines and Toxoid Allergy Unknown Verified 01/06/18 19:12 [TETANUS VACCINES AND TOXOID] Review of Systems Review of Systems Narrative: A 10 system comprehensive review of systems was conducted with the patient and found to be negative except as above in the History of Present Illness. Exam Vital Signs (past 8 hours): - 08/21/20 12:00 08/21/20 15:30 Temperature 97.5 F L 97.6 F Pulse Rate 65 54 L Respiratory Rate 20 18 Blood Pressure 135/63 120/66 Pulse Oximetry 100 98 Oxygen Delivery Method Room Air Oxygen Flow Rate 0 Narrative Exam Narrative: General: Middle aged male sitting in bedside chair and in no acute distress, well-developed, well-nourished, somnolent and falls asleep mid sentence with frequent nodding off. HEENT: Normocephalic, atraumatic. External ears without defect. Pupils equal, round, and reactive to light. Anicteric sclerae, moist conjunctivae, and no lid lag. Oropharynx free of erythema and cobble stoning with moist mucosa. Neck: Supple with full range of motion. No lymphadenopathy or thyromegaly. Cardiovascular: Regular rate and rhythm without murmurs, rubs, or gallops apprec iated. Pulmonary: Clear to auscultation bilaterally without crackles, wheezes, or rhonchi. Normal respiratory effort with no use of accessory muscles. Abdomen: Soft, bowel sounds present, nontender, nondistended. No hepatosplenomegaly or masses appreciated. Extremities: No clubbing or cyanosis. Left leg with several healing abrasions on anterior aspect with nearly circumfrential erythema, taught edema, and warmth that has slightly retracted in margins. Distal pulses and movemnt intact. Pain t o palpation of left lower extremity but not out of proportion. Skin: Normal temperature, turgor, and texture; no other rash, ulcers, or subcutaneous nodules appreciated. Neurological: Cranial nerves grossly intact. Psychiatric: Irritable mood and affect. Somnolent and falls asleep mid sentence with frequent nodding off. He appears possibly intoxicated due to somnolence and slurring words. He appears oriented to person, place, and time when awake and alert. Objective Labs Result Diagrams: 08/21/20 05:20 08/21/20 05:20 Labs: Laboratory Results - last 24 hr 08/21/20 08/21/20 08/21/20 05:20 05:20 05:20 WBC 10.0 RBC 4.55 Hgb 12.6 L Hct 37.0 L MCV 81.4 MCH 27.6 MCHC 33.9 RDW 14.6 Plt Count 242 Neut % (Auto) 65.7 Lymph % (Auto) 21.3 L [place] % (Auto) 11.2 Eos % (Auto) 1.6 L Baso % (Auto) 0.2 Neut # (Auto) 6500 Lymph # (Auto) 2100 [place] # (Auto) 1100 H Eos # (Auto) 200 Baso # (Auto) 0 Sodium 133 L Potassium 4.0 Chloride 101 Carbon Dioxide 28 BUN 17 Creatinine 0.80 Estimated GFR > 60.0 BUN/Creatinine Ratio 21.3 Glucose 134 H Hemoglobin A1c Lactate Calcium 8.9 Magnesium Total Bilirubin 0.6 AST 42 ALT 36 Alkaline Phosphatase 78 Total Protein 7.6 Albumin 3.9 Globulin 3.7 Albumin/Globulin Ratio 1.1 Procalcitonin 0.12 Nasal Screen MRSA (PCR) COVID-19 PCR 08/21/20 08/21/20 08/21/20 05:20 05:35 08:07 WBC RBC Hgb Hct MCV MCH MCHC RDW Plt Count Neut % (Auto) Lymph % (Auto) [place] % (Auto) Eos % (Auto) Baso % (Auto) Neut # (Auto) Lymph # (Auto) [place] # (Auto) Eos # (Auto) Baso # (Auto) Sodium Potassium Chloride Carbon Dioxide BUN Creatinine Estimated GFR BUN/Creatinine Ratio Glucose Hemoglobin A1c 5.4 Lactate 1.1 Calcium Magnesium Total Bilirubin AST ALT Alkaline Phosphatase Total Protein Albumin Globulin Albumin/Globulin Ratio Procalcitonin Nasal Screen MRSA (PCR) COVID-19 PCR Negative 08/21/20 08/21/20 08:07 08:35 WBC RBC Hgb Hct MCV MCH MCHC RDW Plt Count Neut % (Auto) Lymph % (Auto) [place] % (Auto) Eos % (Auto) Baso % (Auto) Neut # (Auto) Lymph # (Auto) [place] # (Auto) Eos # (Auto) Baso # (Auto) Sodium Potassium Chloride Carbon Dioxide BUN Creatinine Estimated GFR BUN/Creatinine Ratio Glucose Hemoglobin A1c Lactate Calcium Magnesium 2.0 Total Bilirubin AST ALT Alkaline Phosphatase Total Protein Albumin Globulin Albumin/Globulin Ratio Procalcitonin Nasal Screen MRSA (PCR) Negative for mrsa COVID-19 PCR Assessment & Plan Assessment & Plan narrative: Jericho Parsons is a 35-year-old male with a past medical history significant for tobacco dependence, and previous IV drug use reportedly in remission who presented to the ED with progressive worsening left lower extremity pain, swelling, redness for 4 days. 1. Acute left lower extremity cellulitis, present on admission. Active. -Patient presented with left lower extremity pain, swelling and redness after c leanin trash with several small abrasions on left leg. -Initial WBC 10.0 and procalcitonin 0.12. Lactate normal at 1.1. Continue to monitor WBC and procalcitonin daily. -Blood culture pending. -Received vancomycin in ED. Continue vancomycin with dosing per pharmacist and ceftriaxone 2 g IV daily to broad spectrum gram postive and negative. Ordered MRSA screen which is negative and he denies history of MRSA but higher risk with IVDU and will continue vancomycin. -Rsik stratified with hemoglobin A1C which was normal at 5.4 % and patient is not diabetic. -Continue to elevate left lower extremity above the level of the heart and monitor cellulitis with outlined margins. -Venous doppler ultrasound of left lower extremity negative for DVT. Low threshold for CT left lower extremity or ortho consult if worsens to rule out abscess and/or compartment syndrome. 2. Tobacco dependence, present on admission. Stable. -Orderded a Nicoderm patch daily as you prevent nicotine withdrawal. -Counseled the patient extensively on smoking cessation. He has no desire to quit smoking. 3. History of polysubstance abuse including IV drugs. -Patient reports he intermittently uses THC but will not clearly report frequency. Patient previously used IV opiates and reports he is in remission. -Ordered urine toxicology screen but patient will not allow collection of urine. -Consulted CINDER DUMP CRANE OPERATOR and we appreciate her time and recommendations. Code status: Full code VTE prophylaxis: Enoxaparin Patient is admitted under inpatient status with expected length of stay greater than 2 midnights due to severity of presenting symptoms, risk of adverse event, and complexity of treatment plan.
--- NOTE | 2020-08-21 20:12 | PC.NURSE ---
Addendum entered by Jeanine Evangelista R.N. 08/21/20 20:33: Pt stated that he did not need to void for entirety of his stay here. As pt was leaving AMA he said that he needed to use the bathroom and made a stop in guest restroom on his way out. Original Note: Pt initially checked on, was sitting up in chair but was somnolent, unable to maintain wakefulness for full conversation. Pt denies using sedating medications/drugs, but unable to obtain urine tox screen d/t pt stating that he was unable to void. RR 16-20 throughout stay, SPO2 98%. Pt stated that he had to leave the hospital to get his truck, which was about to be towed. Pt notified that he couldn't leave the hospital and come back without leaving AMA. Pt decided to stay, but then became irritable and angry when this RN asked if pt would be okay if we looked over his belongings. Pt declined to have his belongings looked over. Pt asked if he had any weapons, a pocket knife was procured and given to this RN, but by that time, pt had decided to leave AMA. Pt had stated early in shift that he was having some issues and would likely have to leave the hospital. Dr. Thomas did not want to have PICC line placed d/t pt's stating that he may be leaving AMA. Pt with tenuous 22 gauge iv in L shoulder. IV infusing NS at 100 ml/hr without issue during shift, but when Vancomycin started, pt began having redness at iv site and it was apparent that iv had infiltrated. This RN meanwhile had discussed the need for a urine sample from pt, pt had been stating throughout the day that he was unable to void. This RN discussed the need to know if pt had sedating medications in his system, in order to safely provide care. Reiterated that this information would not be shared, that it was protected health information and that we would only be using the information to provide safe care to the pt during his stay at the hospital. ICU DOROTA Lerner was witness to this conversation. This RN tried to convince pt to stay at the hospital, citing his need for IV antibiotics and the severity of his cellulitis, the risk of worsening infection and the critical consequences of severe infection. Pt was offered IV toradol for pain management (prior to the infiltration of his iv). Pt agreed to attempt to place an iv and receive iv vancomycin while he was waiting for his ride. Unable to obtain iv access before pt decided to leave AMA, therefore pt did not receive second dose of vancomycin d/t limited iv access. Pt refused to sign AMA paperwork. Dr. Thomas to bedside to explain risks and consequences of leaving AMA. Pt escorted to ER entrance where he awaited his ride in the waiting room.
--- NOTE | 2020-11-17 15:15 | CM.DPNOTE ---
SW received a call pt at ED registration stating that he is requesting an Excuse for Work note signed by MD for his admission 08/21/20 for his work. SW looked pt's stay up and he was admitted for less than 24 hours and left AMA and the MD that admitted pt no longer works at [employer]. SW discussed with pt that he would likely get the documentation of his stay from Medical Records and explained that his admission note could not just be printed off and handed to him due to liability reasons and would need to go through Medical Records. Pt states he will also attempt contacted Dr. Martinez in the ED this evening as he was the initial ED MD during his 08/21/20 stay and possibly request the MD documentation from him. GINA Escobar
== END 2020-08-21 19:00 | disposition left against medical advice (07) | DRG 383 ==
LOC: ED 03:18 → ICU 06:55
PROVIDERS: Internal Medicine; Admitting Provider Nurse Practitioner Adult Health; Emergency Provider Emergency Medicine; Family Provider Orthopaedic Surgery; Referring Provider Emergency Medicine; Visit Provider Nurse Practitioner Adult Health
DX: L03.116 Cellulitis of left lower limb (principal); Z91.19 Patient's noncompliance with other medical treatment and regimen; Z20.828 Contact with and (suspected) exposure to other viral communicable diseases; Z53.29 Procedure and treatment not carried out because of patient's decision for other reasons; F17.210 Nicotine dependence, cigarettes, uncomplicated; Z59.0 Homelessness; S80.812A Abrasion, left lower leg, initial encounter
CPT/HCPCS: 36415; 80053; 83036; 83605; 83735; 84145; 85025; 87040; 87635; 87797; 93971; 96361; 96365; 96366; 99284; G0378; J0696; J1650

== ENCOUNTER 2022-10-01 00:40 | Observation (INO) | payer OTHER, MEDICAID, SELFPAY ==
[2020-08-21 09:34] VITALS: BMI 33.0
[2022-10-01] VITALS (11 sets, daily range): BP systolic 106–158; BP diastolic 56–92; PULSE 74–100; RESP 18–22; TEMP 36.4–37.7; O2SAT 94–99; BMI 36.6
[2022-10-01] MEDS: SODIUM CHLORIDE 0.9% 1,000 ML 1000 ML IV (01:31)
[2022-10-01 01:33] LABS: Lactate (Lactic Acid) 1.7 mmol/L (0.7-2.1)
[2022-10-01 01:34] LABS: Alanine Aminotransferase 36 IU/L (<50); Albumin 3.7 g/dL (3.5-5.0); Albumin Globulin Ratio 1.1 (1.0-2.8); Alkaline Phosphatase 73 U/L (38-126); Aspartate Aminotransferase 35 IU/L (17-59); BUN Creatinine Ratio 12.9 (6-22); Bilirubin Total 0.8 mg/dL (0.2-1.3); Blood Urea Nitrogen 12 mg/dL (9-20); Calcium 8.5 mg/dL (8.4-10.2); Carbon Dioxide 27 mmol/L (22-32); Chloride 98 mmol/L (98-107); Estimated Glomerular Filt Rate > 60 mL/min (>60); Globulin 3.4 g/dL (1.7-4.1); Glucose 104 mg/dL (70-100); HEMOLYSIS < 15 (0-50); Potassium 3.9 mmol/L (3.4-5.1); Sodium 132 mmol/L (137-145); Total Protein 7.1 g/dL (6.3-8.2)
[2022-10-01 01:38] LABS: Add Manual Diff / Slide Review YES; Hematocrit 39.7 % (41-53); Hemoglobin 13.1 g/dL (13.5-17.5); Mean Corpuscular HGB Conc 33.1 % (30-36); Mean Corpuscular Hemoglobin 27.6 PG (26-34); Mean Corpuscular Volume 83.5 fL (80-100); Platelet Count 182 X10^3/uL (150-400); Red Blood Cell Count 4.75 X10^6/uL (4.5-5.9); Red Cell Distribution Width 13.8 % (11.6-14.8); White Blood Cell Count 13.6 X10^3/uL (4.5-11.0)
[2022-10-01 01:51] LABS: Procalcitonin 0.21 ng/mL (<0.5)
--- NOTE | 2022-10-01 01:54 | DI.RAD.S_ITS ---
PROCEDURE: XR HAND LT MIN 3V INDICATIONS: swelling infection TECHNIQUE: Three views of the hand acquired. COMPARISON: None. FINDINGS: Bones: No acute fractures or dislocations. Small ossification adjacent to the ulnar styloid is most likely the sequela of remote prior trauma. Carpal bones are normally aligned. No suspicious bony lesions. Soft tissues: No suspicious soft tissue calcifications. Prominent soft tissue edema is seen in the hand. IMPRESSION: Nonspecific soft tissue edema throughout the hand. No acute osseous abnormality. There is no significant discrepancy when compared to the overnight preliminary report. Approved by: Kevin White M.D. on 10/01/2022 at 8:08
--- NOTE | 2022-10-01 01:56 | DI.RAD.S_ITS ---
PROCEDURE: XR CHEST 1V INDICATIONS: fever TECHNIQUE: One view of the chest was acquired. COMPARISON: None. FINDINGS: Surgical changes and devices: None. Lungs and pleura: Lungs are clear. No pleural effusions or pneumothorax. Mediastinum: Mediastinal contours appear normal. Heart size is normal. Bones and chest wall: No suspicious bony lesions. Overlying soft tissues appear unremarkable. IMPRESSION: No acute cardiopulmonary abnormality. There is no significant discrepancy when compared to the overnight preliminary report. Approved by: Kevin White M.D. on 10/01/2022 at 8:16
[2022-10-01 02:01] LABS: COVID19 -Nasal RAPID Negative (Negative)
[2022-10-01] MEDS: cefTRIAXone 2,000 MG in SODIUM CHLORIDE 0.9% 100 ML 200 MG IV (02:16)
[2022-10-01] MEDS: KETOROLAC 30 MG/ML VIAL 15 MG IV (02:17)
[2022-10-01] MEDS: ACETAMINOPHEN 325 MG TABLET 975 MG PO ×2 (02:25→14:43)
[2022-10-01] MEDS: VANCOMYCIN 2,000 MG/400 ML PIGGYBACK 200 MG IV (02:26)
--- NOTE | 2022-10-01 02:29 | ED.SKABFB ---
HPI - Skin/Abscess/Foreign Bdy General Chief complaint: Skin/Abscess/Foreign Body Stated complaint: LEFT HAND AND ARM SWOLLEN Time Seen by Provider: 10/01/22 01:19 Source: patient Mode of arrival: Ambulatory Limitations: no limitations History of Present Illness HPI narrative: Patient 37-year-old male history of IVDA now going to methadone clinic presenting with left hand swelling and redness ongoing since last night. However he has not felt well for about 1 week. He is had some body aches cough an upper respiratory illness. He states that he has not had any methadone for the last week because he is not felt well. He denies any recent injection or drug use. Says that he has been clean for the last 9 months. His hand is quite swollen and erythematous with some erythema up his arm as well. Related Data Home Medications Medication Instructions Recorded Confirmed methadone 10 mg/mL oral concentrate 30 mg PO DAILY 10/01/22 10/01/22 Allergies Allergy/AdvReac Type Severity Reaction Status Date / Time bee venom protein (honey bee) Allergy Unknown Verified 01/06/18 19:12 [BEE VENOM PROTEIN (HONEY BEE)] Tetanus Vaccines and Toxoid Allergy Unknown Verified 01/06/18 19:12 [TETANUS VACCINES AND TOXOID] Review of Systems Review of Systems ROS Unobtainable: All systems reviewed & are unremarkable except as noted in HPI and below Patient History Medical History Back pain Heart murmur IVDU (intravenous drug user) Marijuana use Tobacco dependence Surgical History S/P laminectomy Family History Mother Heart problem Father Medical history unknown Sister Heart problem History of heart bypass surgery Social History household members: significant other Smoking Status: Current some day smoker alcohol intake: never Smoking Status: Current some day smoker alcohol intake frequency: 0-2 drinks per day Substance Use Type: marijuana Exam Initial Vital Signs Initial Vital Signs: Vital Signs Temperature 99.2 F 10/01/22 00:45 Pulse Rate 100 H 10/01/22 00:45 Respiratory Rate 18 10/01/22 00:45 Blood Pressure 158/92 H 10/01/22 00:45 Pulse Oximetry 99 10/01/22 00:45 Oxygen Delivery Method 10/01/22 00:45 GENERAL: Alert 37-year-old male appears to not feel well HEENT: Head atraumatic,EOMI, pupils reactive, face symmetric, [moist] mucous membranes CARDIOVASCULAR: Regular rate and rhythm without murmurs, rubs or gallops. RESPIRATORY: Breath sounds equal bilaterally, no wheezes rales or rhonchi. ABDOMEN: Soft, nontender. Normoactive bowel sounds all 4 quadrants. No guarding or rebound. EXTREMITIES: Normal range of motion, no clubbing or edema. Neurovascularly intact NEUROLOGICAL: Alert and oriented x4. SKIN: Left hand significantly swollen erythema streaking up forearm and some splotchy patches in the left upper arm as well. 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 Course Orders Ordered: ED Orders 10/01/22 01:00 COVID19 -Nasal RAPID/Pre-Proc Stat 10/01/22 01:05 CBC Auto Diff [Complete Blood Count AUTO DIFF] Stat CMP [Comprehensive Metabolic Panel] Stat Lactate (Lactic Acid) Stat Procalcitonin Stat 10/01/22 01:19 Blood Culture Stat 10/01/22 01:54 XR hand LT min 3V Stat 10/01/22 01:56 Chest [XR chest 1V] Stat 10/01/22 02:30 Covid-19 + FLU A/B + RSV - PCR Stat 10/02/22 05:00 Complete Blood Count AUTO DIFF DAILY Comprehensive Metabolic Panel DAILY Magnesium DAILY 10/03/22 05:00 Complete Blood Count AUTO DIFF DAILY Comprehensive Metabolic Panel DAILY Magnesium DAILY 10/04/22 05:00 Complete Blood Count AUTO DIFF DAILY Comprehensive Metabolic Panel DAILY Magnesium DAILY Acetaminophen (Acetaminophen 325 Mg Tablet) 975 mg PO Q8H PRN PRN Reason: Fever/Mild Pain (1-3) Enoxaparin Sodium (Enoxaparin 40 Mg/0.4 Ml Syringe) 40 mg SUBCUT DAILY [facility] Hydromorphone HCl (Hydromorphone 1 Mg Inj) 1 mg IV Q4H PRN PRN Reason: Breakthrough Pain Sodium Chloride (Normal Saline 0.9%) 1,000 mls @ 150 mls/hr IV CONT ADEBAYO Last Admin: 10/01/22 05:44 Dose: 150 mls/hr Documented By: Infusion: 10/01/22 05:44 Dose: 150 mls/hr Documented By: Admin: 10/01/22 03:10 Dose: 150 mls/hr Documented By: ISAAC Ceftriaxone Sodium 2,000 mg/ (Sodium Chloride) 100 mls @ 200 mls/hr IV Q24H [facility] Stop: 10/08/22 01:29 Vancomycin HCl (Vancomycin) 1,250 mg in 250 mls @ 125 mls/hr IV Q8H ADEBAYO Naloxone HCl (Naloxone 0.4 Mg/Ml Vial) 0.2 mg IV Q2MIN PRN PRN Reason: Opiate Reversal Ondansetron HCl (Ondansetron 4 Mg/2 Ml Inj) 4 mg IV Q8HR PRN PRN Reason: Nausea And Vomiting Oxycodone HCl (Oxycodone Ir 5 Mg Tablet) 5 mg PO Q3H PRN PRN Reason: Pain, Moderate (4-6) Oxycodone HCl (Oxycodone Ir 10 Mg Tablet) 10 mg PO Q3H PRN PRN Reason: Pain, Severe (7-10) Vancomycin HCl (Vancomycin Per Pharmacy) 1 request MISC NOW ONE Stop: 10/01/22 05:07 Discontinued Medications Acetaminophen (Acetaminophen 325 Mg Tablet) 975 mg PO NOW ONE Stop: 10/01/22 01:55 Last Admin: 10/01/22 02:25 Dose: 975 mg Documented By: ISAAC Sodium Chloride (Normal Saline 0.9%) 1,000 mls @ 1,000 mls/hr IV BOLUS ONE Stop: 10/01/22 02:18 Last Infusion: 10/01/22 02:36 Dose: 0 mls/hr Documented By: Admin: 10/01/22 01:31 Dose: 1,000 mls/hr Documented By: PADDY Ceftriaxone Sodium 2,000 mg/ (Sodium Chloride) 100 mls @ 200 mls/hr IV NOW ONE Stop: 10/01/22 01:55 Last Infusion: 10/01/22 02:48 Dose: 0 mls/hr Documented By: Admin: 10/01/22 02:16 Dose: 200 mls/hr Documented By: ISAAC Vancomycin HCl/Dextrose (Vancomycin) 2,000 mg in 400 mls @ 200 mls/hr IV NOW ONE Stop: 10/01/22 03:54 Last Infusion: 10/01/22 04:30 Dose: 0 mls/hr Documented By: Admin: 10/01/22 02:26 Dose: 200 mls/hr Documented By: ISAAC Ketorolac Tromethamine (Ketorolac 30 Mg/Ml Vial) 15 mg IV NOW ONE Stop: 10/01/22 01:55 Last Admin: 10/01/22 02:17 Dose: 15 mg Documented By: ISAAC Vital Signs Vital signs: Vital Signs - 8 hr 10/01/22 00:45 Temperature 99.2 F Pulse Rate 100 H Respiratory Rate 18 Blood Pressure 158/92 H Pulse Oximetry 99 Oxygen Delivery Method Room Air MDM - Skin/Abscess/Foreign Bdy Lab Data 10/01/22 01:05 10/01/22 01:05 Labs: Lab Results 10/01/22 10/01/22 10/01/22 Range/Units 01:05 01:05 01:05 WBC 13.6 H (4.5-11.0) X10^3/uL RBC 4.75 (4.5-5.9) X10^6/uL Hgb 13.1 L (13.5-17.5) g/dL Hct 39.7 L (41-53) % MCV 83.5 (80-100) fL MCH 27.6 (26-34) PG MCHC 33.1 (30-36) % RDW 13.8 (11.6-14.8) % Plt Count 182 (150-400) X10^3/uL Neut % (Auto) Not Reportable Lymph % (Auto) Not Reportable [place] % (Auto) Not Reportable Eos % (Auto) Not Reportable Baso % (Auto) Not Reportable Lymph # (Auto) Not Reportable [place] # (Auto) Not Reportable Baso # (Auto) Not Reportable Total Counted 100 Seg Neutrophils % 70.0 (38-70) % Band Neutrophils % 17.0 H (3-7) % Lymphocytes % (Manual) 8.0 L (25-45) % Monocytes % (Manual) 5.0 (2-11) % Neutrophils # (Manual) 73661 H (1582-9608) /uL RBC Morphology Normal morphology Sodium 132 L (137-145) mmol/L Potassium 3.9 (3.4-5.1) mmol/L Chloride 98 (98-107) mmol/L Carbon Dioxide 27 (22-32) mmol/L BUN 12 (9-20) mg/dL Creatinine 0.93 (0.66-1.25) mg/dL Estimated GFR > 60 (>60) mL/min BUN/Creatinine Ratio 12.9 (6-22) Glucose 104 H (70-100) mg/dL Lactate 1.7 (0.7-2.1) mmol/L Calcium 8.5 (8.4-10.2) mg/dL Total Bilirubin 0.8 (0.2-1.3) mg/dL AST 35 (17-59) IU/L ALT 36 (<50) IU/L Alkaline Phosphatase 73 (38-126) U/L Total Protein 7.1 (6.3-8.2) g/dL Albumin 3.7 (3.5-5.0) g/dL Globulin 3.4 (1.7-4.1) g/dL Albumin/Globulin Ratio 1.1 (1.0-2.8) Procalcitonin (<0.5) ng/mL SARS-CoV-2 (PCR) (Negative) Influenza A (RT-PCR) (NEGATIVE) Influenza B (RT-PCR) (NEGATIVE) RSV (PCR) (Negative) 10/01/22 10/01/22 10/01/22 Range/Units 01:05 01:43 02:30 WBC (4.5-11.0) X10^3/uL RBC (4.5-5.9) X10^6/uL Hgb (13.5-17.5) g/dL Hct (41-53) % MCV (80-100) fL MCH (26-34) PG MCHC (30-36) % RDW (11.6-14.8) % Plt Count (150-400) X10^3/uL Neut % (Auto) Lymph % (Auto) [place] % (Auto) Eos % (Auto) Baso % (Auto) Lymph # (Auto) [place] # (Auto) Baso # (Auto) Total Counted Seg Neutrophils % (38-70) % Band Neutrophils % (3-7) % Lymphocytes % (Manual) (25-45) % Monocytes % (Manual) (2-11) % Neutrophils # (Manual) ([id number]) /uL RBC Morphology Sodium (137-145) mmol/L Potassium (3.4-5.1) mmol/L Chloride (98-107) mmol/L Carbon Dioxide (22-32) mmol/L BUN (9-20) mg/dL Creatinine (0.66-1.25) mg/dL Estimated GFR (>60) mL/min BUN/Creatinine Ratio (6-22) Glucose (70-100) mg/dL Lactate (0.7-2.1) mmol/L Calcium (8.4-10.2) mg/dL Total Bilirubin (0.2-1.3) mg/dL AST (17-59) IU/L ALT (<50) IU/L Alkaline Phosphatase (38-126) U/L Total Protein (6.3-8.2) g/dL Albumin (3.5-5.0) g/dL Globulin (1.7-4.1) g/dL Albumin/Globulin Ratio (1.0-2.8) Procalcitonin 0.21 (<0.5) ng/mL SARS-CoV-2 (PCR) Negative Negative (Negative) Influenza A (RT-PCR) Flu a negative (NEGATIVE) Influenza B (RT-PCR) Flu b negative (NEGATIVE) RSV (PCR) Negative (Negative) Imaging Data Extremity x-ray #1: Radiologist's Impression: Preliminary report no acute finding osseous findings. Diffuse soft tissue swelling Chest x-ray: Radiologist's Impression: Preliminary report no acute findings MDM Narrative Medical decision making narrative: Patient 37-year-old male history of drug use presenting today with left upper extremity cellulitis. His left hand is quite swollen and edematous. He appears to have poor hygiene as well probably contributing to his current infection. He has mild leukocytosis of 13 with normal lactate and procalcitonin. X-ray does not show any air no evidence of necrotizing fasciitis. He has had some upper respiratory like symptoms ongoing for about a week. Chest x-ray is clear without pneumonia. Upper respiratory viral panel is also negative. However due to patient's significant erythema and swelling of his hand he is admitted to the hospital. Fingers are not necessarily involve there is no evidence of flexor tenosynovitis. I do not appreciate any abscess in the dorsum of his hand. He is given vancomycin and Rocephin. Discharge Plan Departure Patient Disposition: Admitted as Observation Clinical Impression: Cellulitis Admit Date/Time: 10/01/22 03:39 Admit Provider: Adarsh Song
[2022-10-01] MEDS: SODIUM CHLORIDE 0.9% 1,000 ML 150 ML IV ×3 (03:10→14:37)
[2022-10-01 03:18] LABS: COVID-19 CEPHEID 4-PLEX PCR Negative (Negative); Influenza A - CEPHEID Flu A NEGATIVE (NEGATIVE); Influenza B - CEPHEID Flu B NEGATIVE (NEGATIVE); Respiratory Syncytial Virus Negative (Negative)
[2022-10-01 05:17] LABS: Neutrophils Absolute Manual 11832 /uL (3000-5900); Total Cells Counted 100
[2022-10-01 05:18] LABS: RBC Morphology Normal Morphology
--- NOTE | 2022-10-01 06:34 | P.HP_ITS ---
History of Present Illness History of Present Illness Date Patient Seen: 10/01/22 Time Patient Seen: 06:34 Chief complaint: LEFT HAND AND ARM SWOLLEN Narrative: Jericho Parsons is a 35-year-old male with a past medical history significant for substance abuse on methadone who presents with one day of left hand swelling, redness. For the past week he endorses chills and generalized malaise with some body aches and rhinorrhea. On his left 2nd finger, he notes a splinter about a week ago that was since removed. He denies recent heroin or drug use. The swelling started initially in his left hand but has migrated up his arm. In the emergency room, the patient's vital signs were unremarkable. Laboratory evaluation revealed a mild leukocytosis with WBC of 13.6, and 17% bands. Chemistries revealed a mild hyponatremia with sodium of 132, but otherwise was largely unremarkable. Procalcitonin was 0.21. COVID-19, flu, and RSV were negative by PCR. Patient had a left hand x-ray which showed diffuse swelling but no gas or fractures or foreign bodies, as well as a chest x-ray which was unremarkable. These studies were personally reviewed and interpreted by me. . Patient History Medical History Back pain Heart murmur IVDU (intravenous drug user) Marijuana use Tobacco dependence Surgical History S/P laminectomy Family & Social History Family History Mother Heart problem Father Medical history unknown Sister Heart problem History of heart bypass surgery Social History: household members significant other Prior Living Arrangements House Safety & Behavioral: Feels Safe in Current Yes Environment Been Physically Hurt or No Threatened By a Person Tobacco & Substance use: Tobacco type cigarettes Smoking Status Current some day smoker Smoking packs per day 0.5 alcohol intake never alcohol intake frequency 0-2 drinks per day Substance Use Type marijuana Meds Home Medications and Allergies Home Medications Medication Instructions Recorded Confirmed Type methadone 10 mg/mL oral concentrate 30 mg PO DAILY 10/01/22 10/01/22 History Allergies Allergy/AdvReac Type Severity Reaction Status Date / Time bee venom protein (honey bee) Allergy Unknown Verified 01/06/18 19:12 [BEE VENOM PROTEIN (HONEY BEE)] Tetanus Vaccines and Toxoid Allergy Unknown Verified 01/06/18 19:12 [TETANUS VACCINES AND TOXOID] Review of Systems Review of Systems Narrative: All other systems reviewed with the patient and are negative unless otherwise stated. Exam Vital Signs (past 8 hours): - 10/01/22 00:45 10/01/22 05:06 10/01/22 05:17 Temperature 99.2 F 98 F 97.8 F Pulse Rate 100 H 80 74 Respiratory Rate 18 18 19 Blood Pressure 158/92 H 138/84 115/71 Pulse Oximetry 99 97 94 Oxygen Delivery Method Room Air Room Air Oxygen Flow Rate 0 Oxygen Delivery Method Room Air Oxygen Flow Rate 0 Narrative Exam Narrative: General:? Patient is well developed and well nourished, in no distress at this time. HEENT:? Normocephalic, atraumatic, extraocular muscles intact, oral pharynx is clear and mucous membranes are moist. Neck: supple and symmetric, trachea is midline, no cervical adenopathy. Negative for JVD Chest:? Normal AP diameter and contour without kyphoscoliosis, no tachypnea, equal chest rise bilaterally. Lungs:? CTA b/l no wheezing rhonchi or rales. Cardio:?RRR no m/r/g. Musculoskeletal:? Muscle strength and tone are equal within normal limits, no deformity. No pain with movement of his left hand. Extremities: left upper extremity swelling, erythema, warmth, and tenderness (mild) from the dorsum of his hand spreading to circumferential forearm distally. There is streaking up his left arm as well. There is a well healed scab on his Left 2nd finger without erythema or induration. No purulence is noted. Fingernails soiled. Skin:? Pale,? Warm to touch,dry and intact without except as noted above, ulcerations or petechiae.? Neuro:? Alert and orientated x3,? sensation to touch intact in all extremities, no gross deficits noted of cranial nerves. Psych:? Patient has an appropriate affect, mental status attitude thought context and judgment are appropriate for age. Objective Labs 10/01/22 01:05 10/01/22 01:05 Labs: Laboratory Results - last 24 hr 10/01/22 10/01/22 10/01/22 01:05 01:05 01:05 WBC 13.6 H RBC 4.75 Hgb 13.1 L Hct 39.7 L MCV 83.5 MCH 27.6 MCHC 33.1 RDW 13.8 Plt Count 182 Neut % (Auto) Not Reportable Lymph % (Auto) Not Reportable [place] % (Auto) Not Reportable Eos % (Auto) Not Reportable Baso % (Auto) Not Reportable Lymph # (Auto) Not Reportable [place] # (Auto) Not Reportable Baso # (Auto) Not Reportable Total Counted 100 Seg Neutrophils % 70.0 Band Neutrophils % 17.0 H Lymphocytes % (Manual) 8.0 L Monocytes % (Manual) 5.0 Neutrophils # (Manual) 90154 H RBC Morphology Normal morphology Sodium 132 L Potassium 3.9 Chloride 98 Carbon Dioxide 27 BUN 12 Creatinine 0.93 Estimated GFR > 60 BUN/Creatinine Ratio 12.9 Glucose 104 H Lactate 1.7 Calcium 8.5 Total Bilirubin 0.8 AST 35 ALT 36 Alkaline Phosphatase 73 Total Protein 7.1 Albumin 3.7 Globulin 3.4 Albumin/Globulin Ratio 1.1 Procalcitonin SARS-CoV-2 (PCR) Influenza A (RT-PCR) Influenza B (RT-PCR) RSV (PCR) 10/01/22 10/01/22 10/01/22 01:05 01:43 02:30 WBC RBC Hgb Hct MCV MCH MCHC RDW Plt Count Neut % (Auto) Lymph % (Auto) [place] % (Auto) Eos % (Auto) Baso % (Auto) Lymph # (Auto) [place] # (Auto) Baso # (Auto) Total Counted Seg Neutrophils % Band Neutrophils % Lymphocytes % (Manual) Monocytes % (Manual) Neutrophils # (Manual) RBC Morphology Sodium Potassium Chloride Carbon Dioxide BUN Creatinine Estimated GFR BUN/Creatinine Ratio Glucose Lactate Calcium Total Bilirubin AST ALT Alkaline Phosphatase Total Protein Albumin Globulin Albumin/Globulin Ratio Procalcitonin 0.21 SARS-CoV-2 (PCR) Negative Negative Influenza A (RT-PCR) Flu a negative Influenza B (RT-PCR) Flu b negative RSV (PCR) Negative Assessment & Plan Assessment & Plan narrative: 1. Left upper extremity cellulitis - continue ceftriaxone and vancomycin per pharmacy. - initial imaging not consistent with necrotizing infection, no crepitus on exam nor evidence on radiographic imaging. Monitor carefully given abrupt onset, it is reassuring as well the patient reports improvement after ER treatments. - no indication for surgical intervention at this time, but if no significant i mprovement consultation recommended at that time. - ordered MRSA swam, discontinue vancomycin potentially if negative. 2. Polysubstance use - patient refuses nicotine patch - reports previous methadone dose of 160 mg daily, but had to restart once he missed clinic for >7 days, currently on 30 mg daily. - will continue oxycodone for now given acute pain with his cellulitis. 3. Hyponatremia, acute - mild and acute, continue NS @150 cc per hour for now. Given 1L bolus in the ER. - recheck daily sodium. Code: Full, surrogate is patient's significant other DVT: Lovenox daily Dispo: admitted observation, will likely discharge home in 1-2 days, but may need longer stay depending on response to antibiotic therapies. I have utilized all available immediate resources to obtain, update, or review the patient's current medications. COVID-19 COVID-19 status: Negative Time Spent With Patient Critical Care time: I spent a total of [] minutes of critical care time on this patient's care today; this time is exclusive of procedural time. Quality VTE Deep Vein Thrombosis/Pulmonary Embolism Present on Admission: No
[2022-10-01] MEDS: METHADONE INTENSOL 10 MG/ML ORAL.CONC 30 MG PO ×2 (09:31→22:14)
[2022-10-01] MEDS: ENOXAPARIN 40 MG/0.4 ML SYRINGE SUBCUT (09:31)
[2022-10-01] MEDS: VANCOMYCIN 1,250 MG/250 ML PIGGYBACK 125 MG IV ×2 (09:31→17:28)
[2022-10-01] MEDS: OXYCODONE IR 10 MG TABLET PO ×4 (09:40→20:59)
--- NOTE | 2022-10-01 15:22 | CM.DANOTE ---
Initial DCP Assessment Note Pt is a 37 yo male, resident of [place], presents with left swollen hand and arm and admitted for Left upper extremity cellulitis and IV ceftriaxone and vancomycin per pharmacy PCP: None Listed (will discuss with patient) Payer: [employer] Reviewed chart, met with patient to introduce self and role. Patient complaining of migraine so visit kept brief Patient indp at baseline, currently unemployed and living off disability benefits through an L+I claim. Patient is a former IVDU and receiving Methadone maintenance through [facility]. 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 No History Provided By Patient,Medical Record Prior Living Arrangements House Household Members significant other Type of transporation used prior to Drives own vehicle admit Comment Currently unemployed and receiving disability benefit from an L+I claim Independent with ADL's Yes Is patient alert and oriented? Yes Comment If patient needs fci IV ABO, has history of substance abuse. Discharge Plan Home Transportation Arrangement Friend Referrals Initiated None needed Additional Comment Following for needs. Expect home w/SO and po medication
--- NOTE | 2022-10-01 17:32 | PC.NURSE ---
1700: Notified Dr. Lynn regarding increase edema to left hand. Good sensation, radial pulse 2+, warm, and able to move fingers.
[2022-10-01] MEDS: CALCIUM CARBONATE 500 MG TAB 1000 MG PO (18:53)
--- NOTE | 2022-10-01 19:05 | DI.US.S_ITS ---
PROCEDURE: US PERIPH VENOUS UP EXTREM LT INDICATIONS: EXTENSIVE SWELLING WITH CELLULITIS RULE OUT DVT TECHNIQUE: Real-time imaging, as well as color and pulse Doppler interrogation, was performed of the left upper extremity deep veins from the inferior neck to the antecubital fossa. COMPARISON: US, US PERIP VENOUS LOW EXTREM LT, 08/21/2020, 7:00. FINDINGS: The internal jugular vein, visualized portions of the subclavian vein, axillary, and brachial veins are free of intraluminal thrombus. Where physically possible, the veins are normally compressible. Color and pulse Doppler demonstrate normal intraluminal flow, with expected phasicity and pulsatility. Additional scanning of the cephalic and basilic veins of the superficial system demonstrate normal compressibility, without thrombus. IMPRESSION: No deep venous thrombosis. Dictated by: Salma Archer M.D. on 10/02/2022 at 8:00 Approved by: Salma Archer M.D. on 10/02/2022 at 8:00
[2022-10-02 01:00] VITALS: O2SAT 98
[2022-10-02] MEDS: cefTRIAXone 2,000 MG in SODIUM CHLORIDE 0.9% 100 ML 200 MG IV (03:23)
[2022-10-02 03:59] LABS: Add Manual Diff / Slide Review NO; Basophils Absolute Auto 0 /uL (0-100); Basophils Percent Auto 0.3 % (0-2); Eosinophils Absolute Auto 100 /uL (0-450); Eosinophils Percent Auto 0.7 % (2-4); Hematocrit 37.6 % (41-53); Hemoglobin 12.7 g/dL (13.5-17.5); Lymphocytes Absolute Auto 1300 /uL (1100-4500); Lymphocytes Percent Auto 13.7 % (25-40); Mean Corpuscular HGB Conc 33.8 % (30-36); Mean Corpuscular Volume 82.8 fL (80-100); Monocytes Absolute Auto 800 /uL (0-900); Monocytes Percent Auto 8.3 % (3-14); Neutrophils Absolute Auto 7400 /uL (1500-7000); Platelet Count 176 X10^3/uL (150-400); Red Blood Cell Count 4.54 X10^6/uL (4.5-5.9); Red Cell Distribution Width 14.3 % (11.6-14.8); White Blood Cell Count 9.6 X10^3/uL (4.5-11.0)
[2022-10-02 04:00] VITALS: BP 146/62; PULSE 73; RESP 15; TEMP 36.9; O2SAT 95
[2022-10-02 04:10] LABS: Alanine Aminotransferase 31 IU/L (<50); Albumin Globulin Ratio 0.9 (1.0-2.8); Alkaline Phosphatase 68 U/L (38-126); Aspartate Aminotransferase 32 IU/L (17-59); BUN Creatinine Ratio 20.3 (6-22); Bilirubin Total 0.2 mg/dL (0.2-1.3); Blood Urea Nitrogen 14 mg/dL (9-20); Calcium 7.8 mg/dL (8.4-10.2); Carbon Dioxide 24 mmol/L (22-32); Chloride 106 mmol/L (98-107); Estimated Glomerular Filt Rate > 60 mL/min (>60); Globulin 3.3 g/dL (1.7-4.1); Glucose 104 mg/dL (70-100); HEMOLYSIS < 15 (0-50); Magnesium 1.7 mg/dL (1.6-2.3); Sodium 136 mmol/L (137-145); Total Protein 6.3 g/dL (6.3-8.2)
[2022-10-02 04:23] LABS: Vancomycin Trough 10.5 ug/mL (10-20)
[2022-10-02] MEDS: VANCOMYCIN 1,250 MG/250 ML PIGGYBACK 125 MG IV (04:47)
[2022-10-02 05:00] VITALS: O2SAT 98
--- NOTE | 2022-10-02 06:09 | RT ---
at 2250 on 10/01/22, pt refused EKG. RN notified.
--- NOTE | 2022-10-02 07:11 | PM.PN.1 ---
Exam Vital Signs (past 8 hours): - 10/02/22 01:00 10/02/22 04:00 10/02/22 05:00 Temperature 98.4 F Pulse Rate 73 Respiratory Rate 15 Blood Pressure 146/62 H Pulse Oximetry 98 95 98 Oxygen Delivery Method Room Air Room Air Oxygen Flow Rate 0 Oxygen Delivery Method Room Air Oxygen Flow Rate 0 Narrative Exam Narrative: General:? Patient is well developed and well nourished, in no distress at this time. HEENT:? Normocephalic, atraumatic, extraocular muscles intact, oral pharynx is clear and mucous membranes are moist. Neck: supple and symmetric, trachea is midline, no cervical adenopathy. Negative for JVD Chest:? Normal AP diameter and contour without kyphoscoliosis, no tachypnea, equal chest rise bilaterally. Lungs:? CTA b/l no wheezing rhonchi or rales. Cardio:?RRR no m/r/g. Musculoskeletal:? Muscle strength and tone are equal within normal limits, no deformity. No pain with movement of his left hand. Extremities: left upper extremity swelling, erythema, warmth, and tenderness (mild) from the dorsum of his hand spreading to circumferential forearm distally. There is streaking up his left arm as well. There is a well healed scab on his Left 2nd finger without erythema or induration. No purulence is noted. Fingernails soiled. Skin:? Pale,? Warm to touch,dry and intact without except as noted above, ulcerations or petechiae.? Neuro:? Alert and orientated x3,? sensation to touch intact in all extremities, no gross deficits noted of cranial nerves. Psych:? Patient has an appropriate affect, mental status attitude thought context and judgment are appropriate for age. Objective Labs 10/02/22 03:50 10/02/22 03:50 Labs: Laboratory Results - last 24 hr 10/01/22 10/02/22 10/02/22 07:00 03:50 03:50 WBC 9.6 RBC 4.54 Hgb 12.7 L Hct 37.6 L MCV 82.8 MCH 28.0 MCHC 33.8 RDW 14.3 Plt Count 176 Neut % (Auto) 77.0 H Lymph % (Auto) 13.7 L [place] % (Auto) 8.3 Eos % (Auto) 0.7 L Baso % (Auto) 0.3 Neut # (Auto) 7400 H Lymph # (Auto) 1300 [place] # (Auto) 800 Eos # (Auto) 100 Baso # (Auto) 0 Sodium Potassium Chloride Carbon Dioxide BUN Creatinine Estimated GFR BUN/Creatinine Ratio Glucose Calcium Magnesium Total Bilirubin AST ALT Alkaline Phosphatase Total Protein Albumin Globulin Albumin/Globulin Ratio Nasal Screen MRSA (PCR) Positive for mrsa H Vancomycin Trough 10.5 10/02/22 03:50 WBC RBC Hgb Hct MCV MCH MCHC RDW Plt Count Neut % (Auto) Lymph % (Auto) [place] % (Auto) Eos % (Auto) Baso % (Auto) Neut # (Auto) Lymph # (Auto) [place] # (Auto) Eos # (Auto) Baso # (Auto) Sodium 136 L Potassium 4.0 Chloride 106 Carbon Dioxide 24 BUN 14 Creatinine 0.69 Estimated GFR > 60 BUN/Creatinine Ratio 20.3 Glucose 104 H Calcium 7.8 L Magnesium 1.7 Total Bilirubin 0.2 AST 32 ALT 31 Alkaline Phosphatase 68 Total Protein 6.3 Albumin 3.0 L Globulin 3.3 Albumin/Globulin Ratio 0.9 L Nasal Screen MRSA (PCR) Vancomycin Trough [facility] Medical History Back pain Heart murmur IVDU (intravenous drug user) Marijuana use Tobacco dependence Surgical History S/P laminectomy Family History Mother Heart problem Father Medical history unknown Sister Heart problem History of heart bypass surgery Social History household members: significant other Smoking Status: Current some day smoker alcohol intake: never Assessment & Plan Assessment & Plan narrative: 1. Left upper extremity cellulitis - continue ceftriaxone and vancomycin per pharmacy. - initial imaging not consistent with necrotizing infection, no crepitus on exam nor evidence on radiographic imaging. Monitor carefully given abrupt onset, it is reassuring as well the patient reports improvement after ER treatments. - no indication for surgical intervention at this time, but if no significant improvement consultation recommended at that time. - ordered MRSA swam, discontinue vancomycin potentially if negative. 2. Polysubstance use - patient refuses nicotine patch - reports previous methadone dose of 160 mg daily, but had to restart once he missed clinic for >7 days, currently on 30 mg daily. - will continue oxycodone for now given acute pain with his cellulitis. 3. Hyponatremia, acute - mild and acute, continue NS @150 cc per hour for now. Given 1L bolus in the ER. - recheck daily sodium. Code: Full, surrogate is patient's significant other DVT: Lovenox daily Dispo: admitted observation, will likely discharge home in 1-2 days, but may need longer stay depending on response to antibiotic therapies. I have utilized all available immediate resources to obtain, update, or review the patient's current medications. COVID-19 COVID-19 status: Negative Time Spent With Patient Critical Care time: I spent a total of [] minutes of critical care time on this patient's care today; this time is exclusive of procedural time. Quality VTE Deep Vein Thrombosis/Pulmonary Embolism Present on Admission: No
[2022-10-02 08:00] VITALS: BP 143/62; PULSE 83; RESP 20; TEMP 36.6; O2SAT 100
[2022-10-02] MEDS: METHADONE INTENSOL 10 MG/ML ORAL.CONC 60 MG PO (09:31)
[2022-10-02] MEDS: ENOXAPARIN 40 MG/0.4 ML SYRINGE SUBCUT (09:32)
--- NOTE | 2022-10-02 10:51 | PM.DS.1 ---
History of Present Illness History of Present Illness Date Patient Seen: 10/02/22 Time Patient Seen: 10:52 Chief complaint: LEFT HAND AND ARM SWOLLEN Narrative: Jericho Parsons is a 35-year-old male with a past medical history significant for substance abuse on methadone who presents with one day of left hand swelling, redness. For the past week he endorses chills and generalized malaise with some body aches and rhinorrhea. On his left 2nd finger, he notes a splinter about a week ago that was since removed. He denies recent heroin or drug use. The swelling started initially in his left hand but has migrated up his arm. In the emergency room, the patient's vital signs were unremarkable. Laboratory evaluation revealed a mild leukocytosis with WBC of 13.6, and 17% bands. Chemistries revealed a mild hyponatremia with sodium of 132, but otherwise was largely unremarkable. Procalcitonin was 0.21. COVID-19, flu, and RSV were negative by PCR. Patient had a left hand x-ray which showed diffuse swelling but no gas or fractures or foreign bodies, as well as a chest x-ray which was unremarkable. These studies were personally reviewed and interpreted by me. Discharge Providers Provider Date of admission: 10/01/22 03:39 Discharge Date: 10/02/22 Discharge provider: Phillip Lynn DO Summary Hospital Course Discharge Diagnosis: 1. Left upper extremity cellulitis, improving - received ceftriaxone and vancomycin with improvement in swelling, redness and pain - initial imaging not consistent with necrotizing infection, no crepitus on exam nor evidence on radiographic imaging. Monitor carefully given abrupt onset, it is reassuring as well the patient reports improvement after ER treatments. - no indication for surgical intervention at this time, but if no significant improvement consultation recommended at that time. - LUE US negative for DVT - MRSA swab positive - discharged on 10 days of po linezolid to cover MRSA, given [employer] coupon to get for $40 at [address] [employer] [address] 2. Polysubstance use - patient refuses nicotine patch - reports previous methadone dose of 160 mg daily, but had to restart once he missed clinic for >7 days, currently on 30 mg daily. - will continue oxycodone for now given acute pain with his cellulitis. - given small script of oxy po for pain on discharge 3. Hyponatremia, acute - mild and acute, continue NS @150 cc per hour for now. Given 1L bolus in the ER. - Na 135 on discharge Hospital Course: Admitted for left upper extremity and hand cellulitis from splinter he got in his hand. Received IV rocephin and vanc with improvement. Due to LUE swelling obtained US to rule out DVT which was negative. MRSA swab positive. He was discharged on 10 days of po linezolid. Time Spent with Patient Time spent: Greater than 30 minutes Exam Vital Signs (past 8 hours): - 10/02/22 04:00 10/02/22 05:00 10/02/22 08:00 Temperature 98.4 F 98 F Pulse Rate 73 83 Respiratory Rate 15 20 Blood Pressure 146/62 H 143/62 H Pulse Oximetry 95 98 100 Oxygen Delivery Method Room Air Oxygen Flow Rate 0 0 Oxygen Delivery Method Room Air Oxygen Flow Rate 0 Narrative Exam Narrative: General:? Patient is well developed and well nourished, in no distress at this time. HEENT:? Normocephalic, atraumatic, extraocular muscles intact, oral pharynx is clear and mucous membranes are moist. Neck: supple and symmetric, trachea is midline, no cervical adenopathy. Negative for JVD Chest:? Normal AP diameter and contour without kyphoscoliosis, no tachypnea, equal chest rise bilaterally. Lungs:? CTA b/l no wheezing rhonchi or rales. Cardio:?RRR no m/r/g. Musculoskeletal:? Muscle strength and tone are equal within normal limits, no deformity. No pain with movement of his left hand. Extremities: left upper extremity swelling, erythema, warmth, and tenderness (mild) from the dorsum of his hand spreading to circumferential forearm distally. There is streaking up his left arm as well. There is a well healed scab on his Left 2nd finger without erythema or induration. No purulence is noted. Fingernails soiled. Skin:? Pale,? Warm to touch,dry and intact without except as noted above, ulcerations or petechiae.? Neuro:? Alert and orientated x3,? sensation to touch intact in all extremities, no gross deficits noted of cranial nerves. Psych:? Patient has an appropriate affect, mental status attitude thought context and judgment are appropriate for age. Objective Labs 10/02/22 03:50 10/02/22 03:50 Labs: Laboratory Results - last 24 hr 10/01/22 10/02/22 10/02/22 07:00 03:50 03:50 WBC 9.6 RBC 4.54 Hgb 12.7 L Hct 37.6 L MCV 82.8 MCH 28.0 MCHC 33.8 RDW 14.3 Plt Count 176 Neut % (Auto) 77.0 H Lymph % (Auto) 13.7 L [place] % (Auto) 8.3 Eos % (Auto) 0.7 L Baso % (Auto) 0.3 Neut # (Auto) 7400 H Lymph # (Auto) 1300 [place] # (Auto) 800 Eos # (Auto) 100 Baso # (Auto) 0 Sodium Potassium Chloride Carbon Dioxide BUN Creatinine Estimated GFR BUN/Creatinine Ratio Glucose Calcium Magnesium Total Bilirubin AST ALT Alkaline Phosphatase Total Protein Albumin Globulin Albumin/Globulin Ratio Nasal Screen MRSA (PCR) Positive for mrsa H Vancomycin Trough 10.5 10/02/22 03:50 WBC RBC Hgb Hct MCV MCH MCHC RDW Plt Count Neut % (Auto) Lymph % (Auto) [place] % (Auto) Eos % (Auto) Baso % (Auto) Neut # (Auto) Lymph # (Auto) [place] # (Auto) Eos # (Auto) Baso # (Auto) Sodium 136 L Potassium 4.0 Chloride 106 Carbon Dioxide 24 BUN 14 Creatinine 0.69 Estimated GFR > 60 BUN/Creatinine Ratio 20.3 Glucose 104 H Calcium 7.8 L Magnesium 1.7 Total Bilirubin 0.2 AST 32 ALT 31 Alkaline Phosphatase 68 Total Protein 6.3 Albumin 3.0 L Globulin 3.3 Albumin/Globulin Ratio 0.9 L Nasal Screen MRSA (PCR) Vancomycin Trough [facility] Medical History Back pain Heart murmur IVDU (intravenous drug user) Marijuana use Tobacco dependence Surgical History S/P laminectomy Family History Mother Heart problem Father Medical history unknown Sister Heart problem History of heart bypass surgery Social History household members: significant other Smoking Status: Current some day smoker alcohol intake: never Discharge Plan Discharge Plan Patient Disposition: Home Provider Discharge Comment: You were admitted with cellulitis aka skin infection of the left hand and arm. You received IV antibiotics and this improved. You were positive for MRSA so I'm putting you on 10 day of oral antibiotics to cover for MRSA infection. I've included a [employer] coupon to get the medication for $40. Discharge orders & Medications Prescriptions: New oxycodone 5 mg Tablet 5 mg PO Q3H PRN (Reason: Pain, Moderate (4-6)) Qty: 15 0RF linezolid 600 mg tablet 600 mg PO Q12H 10 Days Qty: 20 0RF Continued methadone 10 mg/mL Concentrate 30 mg PO DAILY Label Comments: Patient was going to clinic for methadone, has not been there in about a week. Visit Report/Discharge Packet Stand Alone Forms: Patient Portal/API, Stroke Signs & Symptoms Discharge Data Attending Provider: Adarsh Song VTE Deep Vein Thrombosis/Pulmonary Embolism Present on Admission: No
--- NOTE | 2022-10-02 11:06 | PC.NURSE ---
Patients left arm and hand swollen with 3+ edema. He has patches of redness and hand is swollen. Patients ivs both not working and taken out. He will be going home today on po antibiotics.
--- NOTE | 2022-10-02 12:04 | CM.DPNOTE ---
DCP Note Met w/patient per his request; upon entry into the room, patient meeting with a administrative representative from [employer] [facility]. Strongly encouraged patient to consider this program to assist him in navigating outpatient resources and coordinating outpatient medical appointments. [facility] can be in close w/contact w/Kathy as well Patient tells this RECRUITMENT CONSULTANT that he has a medical appt tomorrow that he has to make in order for his L+I claim to continue to pay him Patient asks this RECRUITMENT CONSULTANT to call L+I explained that an L+I claim number and patient case managerpayment manager would be helpful; this RECRUITMENT CONSULTANT can assist by faxing a letter confirming patient is currently admitted at and appointment will need to be rescheduled (?) Patient declines this offer, states he needs to contact his L+I instrument maker. Patient declines additional need from this RECRUITMENT CONSULTANT Chart review now shows patient has been discharged on po abx, close outpatient f/u recommended JW
--- NOTE | 2022-10-12 11:28 | PC.NURSE ---
Late Entry: Ceftriaxone infusion initiated 2/3 at 3:23 complete at 3:54.
== END 2022-10-02 11:20 | disposition home or self-care (01) ==
LOC: ED 01:19 → AC 03:40
PROVIDERS: Admitting Provider Internal Medicine; Emergency Provider Emergency Medicine; Family Provider Orthopaedic Surgery; Visit Provider Internal Medicine
DX: L03.114 Cellulitis of left upper limb (principal); B95.62 Methicillin resistant Staphylococcus aureus infection as the cause of diseases classified elsewhere; E87.1 Hypo-osmolality and hyponatremia; F11.20 Opioid dependence, uncomplicated; F17.210 Nicotine dependence, cigarettes, uncomplicated; Z20.822 Contact with and (suspected) exposure to COVID-19
CPT/HCPCS: 0241U; 36415; 71045; 73130; 80053; 80202; 83605; 83735; 84145; 85007; 85025; 87040; 87635; 87797; 93971; 96365; 96366; 96367; 96372; 96375; 99284; C9803; G0378; J0696; J1650; J1885

== ENCOUNTER 2023-07-02 03:04 | Emergency (ER) | payer OTHER, MEDICAID, SELFPAY ==
[2022-10-01 05:15] VITALS: BMI 36.6
[2023-07-02 03:08] VITALS: O2SAT 96
[2023-07-02 03:09] VITALS: BP 142/87; PULSE 74; O2SAT 97
[2023-07-02 03:12] VITALS: BP 142/87; PULSE 71; RESP 20; TEMP 37; O2SAT 96; BMI 36.6
--- NOTE | 2023-07-02 03:13 | ED.GENADULT ---
HPI - General Adult General Chief complaint: Back Pain/Injury Stated complaint: abd pain and back pain, headache Time Seen by Provider: 07/02/23 03:05 Source: patient Mode of arrival: Ambulatory Limitations: no limitations History of Present Illness HPI narrative: 38-year-old male who is here for evaluation of abdominal pain and back pain and flank pain and headache. Symptoms been going on for the past couple days. He states he drinks some water from his water bottle couple days ago that tasted funny and he thought maybe he has food poisoning although he is not having any nausea vomiting or diarrhea. He is never had a kidney stone in the past. Related Data Home Medications Medication Instructions Recorded Confirmed methadone 10 mg/mL oral concentrate 30 mg PO DAILY 10/01/22 10/01/22 Previous Rx's Medication Instructions Recorded oxycodone 5 mg tablet 5 mg PO Q3H PRN Pain, Moderate 10/02/22 (4-6) #15 tabs Allergies Allergy/AdvReac Type Severity Reaction Status Date / Time bee venom protein (honey bee) Allergy Unknown Verified 01/06/18 19:12 [BEE VENOM PROTEIN (HONEY BEE)] Tetanus Vaccines and Toxoid Allergy Unknown Verified 01/06/18 19:12 [TETANUS VACCINES AND TOXOID] Review of Systems Constitutional Constitutional: Reports system reviewed and no additional complaints, except as documented ENT Ears, Nose, Mouth, and Throat: Reports system reviewed and no additional complaints, except as documented Respiratory Respiratory: Reports system reviewed and no additional complaints, except as documented Gastrointestinal Gastrointestinal: Reports system reviewed and no additional complaints, except as documented Genitourinary Genitourinary: Reports system reviewed and no additional complaints, except as documented Integumentary/Breasts Skin/Breast: Reports system reviewed and no additional complaints, except as documented Hematologic/Lymphatic On Anticoagulants: No Patient History Medical History IVDU (intravenous drug user) Marijuana use Tobacco dependence Heart murmur Back pain Surgical History S/P laminectomy Family History Mother Heart problem Father Medical history unknown Sister Heart problem History of heart bypass surgery Social History household members: significant other Smoking Status: Current some day smoker alcohol intake: never Smoking Status: Current some day smoker alcohol intake frequency: 0-2 drinks per day Substance Use Type: marijuana Exam Initial Vital Signs Initial Vital Signs: Vital Signs Pulse Oximetry 96 07/02/23 03:08 Oxygen Delivery Method Room Air 07/02/23 03:08 HENMT Head: normal to inspection and normocephalic Resp Effort & Inspection: normal respiratory effort Cardio Rate: regular rate Rhythm: regular rhythm GI Inspection: normal to inspection Palpation: soft Back/Spine/Pelvis Other: Left-sided paraspinal thoracolumbar muscle tenderness Skin General: no rashes or lesions noted Course Orders Ordered: ED Orders 07/02/23 03:10 Covid-19 + FLU A/B + RSV - PCR Stat 07/02/23 03:39 UA Complete [Urinalysis and Microscopic] Stat Discontinued Medications Acetaminophen (Acetaminophen 325 Mg Tablet) 650 mg PO NOW ONE Stop: 07/02/23 03:14 Last Admin: 07/02/23 03:19 Dose: 650 mg Documented By: HNG Vital Signs Vital signs: Vital Signs - 8 hr 07/02/23 03:08 07/02/23 03:09 07/02/23 03:09 Temperature Pulse Rate 74 Respiratory Rate Blood Pressure 142/87 H Pulse Oximetry 96 97 Oxygen Delivery Method Room Air Room Air 07/02/23 03:12 07/02/23 04:12 07/02/23 04:12 Temperature 98.6 F Pulse Rate 71 80 Respiratory Rate 20 Blood Pressure 142/87 H 138/65 Pulse Oximetry 96 95 Oxygen Delivery Method Room Air Room Air 07/02/23 04:17 Temperature 98.8 F Pulse Rate Respiratory Rate Blood Pressure Pulse Oximetry Oxygen Delivery Method Medical Decision Making Lab Data Lab results reviewed: Yes I reviewed the patient's lab results. Labs: Lab Results 07/02/23 07/02/23 Range/Units 03:10 03:39 Urine Color Yellow Urine Appearance Clear Urine pH 5.0 (4.5-8.0) Ur Specific [place] >=1.030 H (1.000-1.035) Urine Protein Trace H (Negative) Urine Glucose (UA) Negative (Negative) g/dL Urine Ketones Negative (NEGATIVE) Urine Occult Blood Negative (Negative) Urine Nitrate Negative (Negative) Urine Bilirubin Negative (NEGATIVE) Urine Urobilinogen 1.0 (0.2) E.U./dL Ur Leukocyte Esterase Negative (NEGATIVE) Urine RBC None seen (0-5/HPF) Urine WBC 0-1/hpf (0-5/HPF) Ur Squamous Epith Cells 0-1 /hpf (0-5/HPF) Urine Bacteria Occasional (0-1) (None) Urine Mucus 2+ H (Negative) Ur Culture Indicated? Cult not indicated SARS-CoV-2 (PCR) Positive H (Negative) Influenza A (RT-PCR) Flu a negative (NEGATIVE) Influenza B (RT-PCR) Flu b negative (NEGATIVE) RSV (PCR) Negative (Negative) Urine Dip Bedside Urine Glucose Negative Bedside Urine Bilirubin - Negative Bedside Urine Ketone +/- 5 Urine Specific [place] 1.030 Bedside Urine Occult Blood - Negative Bedside Urine pH 6.0 Bedside Urine Protein +/- 15 Bedside Urine Urobilinogen - Negative Bedside Urine Nitrite - Negative Bedside Urine Leukocytes - Negative Esterase Point of care testing: Urine Dip Bedside Urine Glucose Negative Bedside Urine Bilirubin - Negative Bedside Urine Ketone +/- 5 Urine Specific [place] 1.030 Bedside Urine Occult Blood - Negative Bedside Urine pH 6.0 Bedside Urine Protein +/- 15 Bedside Urine Urobilinogen - Negative Bedside Urine Nitrite - Negative Bedside Urine Leukocytes - Negative Esterase MDM Narrative Medical decision making narrative: Urinalysis is unremarkable. Low suspicion for pyelonephritis or renal stone. He is COVID-19 positive which very much explains his headaches and body aches. No trauma. His pain is paraspinal thoracolumbar not midline tenderness. He does have a history of IV drug abuse although he is not febrile and so I have low suspicion for paraspinal abscess. There was no indication for antibiotics. No indication for admission to the hospital. Is tolerating oral intake. Discharge patient return precautions. He expressed understanding and agreement. Discharge Plan Departure Patient Disposition: Home Clinical Impression: COVID-19, Generalized body aches Instructions: COVID-19 Activity Restrictions/Additional Instructions: Continue to take all of your medications as directed. Follow all current CDC guidelines with regard to quarantine given your COVID-19 status. These can be found online the CDC website. You can take Tylenol for any fevers or body aches. Contact your primary doctor for a follow-up. Prescriptions: No Action methadone 10 mg/mL Concentrate 30 mg PO DAILY Patient Comments: Patient was going to clinic for methadone, has not been there in about a week. oxycodone 5 mg Tablet 5 mg PO Q3H PRN (Reason: Pain, Moderate (4-6)) Qty: 15 0RF Stand Alone Forms: Patient Portal/API
[2023-07-02] MEDS: ACETAMINOPHEN 325 MG TABLET 650 MG PO (03:19)
[2023-07-02 03:53] LABS: Influenza A - CEPHEID Flu A NEGATIVE (NEGATIVE); Influenza B - CEPHEID Flu B NEGATIVE (NEGATIVE); Respiratory Syncytial Virus Negative (Negative)
[2023-07-02 03:54] LABS: COVID-19 CEPHEID 4-PLEX PCR POSITIVE (Negative)
[2023-07-02 03:55] LABS: Appearance Urine UA CLEAR; Bilirubin Urine UA NEGATIVE (NEGATIVE); Color Urine UA YELLOW; Glucose Urine UA NEGATIVE (Negative); Ketones Urine UA NEGATIVE (NEGATIVE); Leukocyte Esterase Urine UA NEGATIVE (NEGATIVE); Nitrite Urine UA NEGATIVE (Negative); Occult Blood Urine UA NEGATIVE (Negative); Protein Urine UA TRACE (Negative); Specific Gravity Urine UA >=1.030 (1.000-1.035)
[2023-07-02 04:08] LABS: Bacteria Urine Occasional (0-1); RBC Urine None Seen (0-5/HPF); WBC Urine 0-1/HPF (0-5/HPF)
[2023-07-02 04:09] LABS: Mucus Urine 2+ (Negative); Squamous Epithelial Cell Urine 0-1 /HPF (0-5/HPF)
[2023-07-02 04:10] LABS: Culture Indicated Urine Cult Not Indicated
[2023-07-02 04:12] VITALS: BP 138/65; PULSE 80; O2SAT 95
[2023-07-02 04:17] VITALS: TEMP 37.1
== END 2023-07-02 04:20 | disposition home or self-care (01) ==
PROVIDERS: Emergency Provider Emergency Medicine; Family Provider Orthopaedic Surgery
DX: U07.1 COVID-19 (principal)
CPT/HCPCS: 0241U; 81001; 81003; 99283

== ENCOUNTER 2023-09-14 19:02 | Emergency (ER) | payer OTHER, MEDICAID, SELFPAY ==
[2022-10-01 05:15] VITALS: BMI 36.6
[2023-09-14 19:21] VITALS: BP 137/84; PULSE 98; RESP 22; TEMP 36.2; O2SAT 100; BMI 35.2
--- NOTE | 2023-09-14 19:27 | DI.RAD.S_ITS ---
PROCEDURE: XR CHEST 1V INDICATIONS: suspected sepsis TECHNIQUE: One view of the chest was acquired. COMPARISON: [facility], , XR CHEST 1V, 10/01/2022, 1:57. FINDINGS: Surgical changes and devices: None. Lungs and pleura: Lungs are clear. No pleural effusions or pneumothorax. Mediastinum: Mediastinal contours appear normal. Heart size is normal. Bones and chest wall: No suspicious bony lesions. Overlying soft tissues appear unremarkable. IMPRESSION: No acute cardiopulmonary abnormality is seen. Approved by: Marj Winn M.D. on 09/14/2023 at 20:26
[2023-09-14] MEDS: ONDANSETRON 4 MG ODT SL (20:16)
--- NOTE | 2023-09-14 20:17 | ED_ITS ---
HPI - Wound/Laceration General Chief Complaint: Wound/Laceration Stated Complaint: laceration right lower extremity Time Seen by Provider: 09/14/23 19:46 Source: patient Mode of arrival: Family Vehicle Limitations: no limitations History of Present Illness HPI narrative: Patient is a 38-year-old male here for evaluation of potential infection in his right lower extremity. Patient states that approximately 2 weeks ago he injured the front of his right leg after hitting it on a trailer hitch. He states since that time he is increasing redness and pain to his right leg that has now spread up to the back of his leg. He states generally he just does not feel very well. He reports fevers and nausea and vomiting. Related Data Home Medications Medication Instructions Recorded Confirmed methadone 10 mg/mL oral concentrate 30 mg PO DAILY 10/01/22 10/01/22 Previous Rx's Medication Instructions Recorded oxycodone 5 mg tablet 5 mg PO Q3H PRN Pain, Moderate 10/02/22 (4-6) #15 tabs doxycycline hyclate 100 mg tablet 100 mg PO BID 10 days #20 tabs 09/14/23 Allergies Allergy/AdvReac Type Severity Reaction Status Date / Time bee venom protein (honey bee) Allergy Unknown Verified 09/14/23 19:26 [BEE VENOM PROTEIN (HONEY BEE)] Tetanus Vaccines and Toxoid Allergy Unknown Verified 09/14/23 19:26 [TETANUS VACCINES AND TOXOID] Review of Systems Constitutional Constitutional: Reports system reviewed and no additional complaints, except as documented Gastrointestinal Gastrointestinal: Reports system reviewed and no additional complaints, except as documented Musculoskeletal Musculoskeletal: Reports system reviewed and no additional complaints, except as documented Integumentary/Breasts Skin/Breast: Reports system reviewed and no additional complaints, except as documented Hematologic/Lymphatic On Anticoagulants: No Patient History Medical History IVDU (intravenous drug user) Marijuana use Tobacco dependence Heart murmur Back pain Surgical History S/P laminectomy Family History Mother Heart problem Father Medical history unknown Sister Heart problem History of heart bypass surgery Social History household members: significant other Smoking Status: Current some day smoker alcohol intake: never Smoking Status: Current some day smoker alcohol intake frequency: 0-2 drinks per day Substance Use Type: former substance user, marijuana and other Exam Initial Vital Signs Initial Vital Signs: Vital Signs Temperature 97.2 F L 09/14/23 19:21 Pulse Rate 98 H 09/14/23 19:21 Respiratory Rate 22 09/14/23 19:21 Blood Pressure 137/84 09/14/23 19:21 Pulse Oximetry 100 09/14/23 19:21 Oxygen Delivery Method Room Air 09/14/23 19:21 HENIN Head: normal to inspection and normocephalic Resp Effort & Inspection: normal respiratory effort Cardio Rate: regular rate Skin Other: Patient does a 2-1/2 cm around skin wound to the anterior aspect of the right hernadez that does have an eschar over top of it. He does have almost circumferential redness to the lower extremity that goes from his knee to his ankle. He is redness that extends mostly at the posterior aspect of his right leg proximal to the knee up to the buttocks. Extrem Other: Redness and swelling and warmth to the right lower extremity. Course Orders Ordered: ED Orders 09/14/23 19:27 XR chest 1V Stat EKG-12 Lead Stat RT Consult Eval and Treat NOW Discontinued Medications Doxycycline Hyclate (Doxycycline Hyclate 100 Mg Tablet) 100 mg PO NOW ONE Stop: 09/14/23 20:18 Last Admin: 09/14/23 20:29 Dose: 100 mg Documented By: JUANCARLOS Sodium Chloride (Normal Saline 0.9%) 1,000 mls @ 1,000 mls/hr IV BOLUS ONE Stop: 09/14/23 20:26 Ondansetron HCl (Ondansetron 4 Mg/2 Ml Inj) 4 mg IV NOW PRN PRN Reason: Nausea And Vomiting Ondansetron HCl (Ondansetron 4 Mg Odt) 4 mg SL NOW PRN PRN Reason: Nausea And Vomiting Last Admin: 09/14/23 20:16 Dose: 4 mg Documented By: JUANCARLOS Ondansetron HCl (Ondansetron 4 Mg Odt) 4 mg SL NOW ONE Stop: 09/14/23 20:18 Ondansetron HCl (Ondansetron 4 Mg Odt Prepack) 1 bottle MISC DIRECTED ONE Stop: 09/14/23 21:17 Last Admin: 09/14/23 21:57 Dose: 1 bottle Documented By: JUANCARLOS Vital Signs Vital signs: Vital Signs - 8 hr 09/14/23 19:21 09/14/23 20:19 09/14/23 20:20 Temperature 97.2 F L Pulse Rate 98 H 68 64 Respiratory Rate 22 28 H Blood Pressure 137/84 Pulse Oximetry 100 99 Oxygen Delivery Method Room Air Room Air 09/14/23 20:20 09/14/23 20:30 09/14/23 20:30 Temperature Pulse Rate 87 Respiratory Rate 24 Blood Pressure 123/73 128/75 Pulse Oximetry 99 Oxygen Delivery Method 09/14/23 21:00 09/14/23 21:00 Temperature Pulse Rate 92 H Respiratory Rate Blood Pressure 134/73 Pulse Oximetry 97 Oxygen Delivery Method Room Air MDM - Wound/Laceration Imaging Data Chest x-ray: Radiologist's Impression: PROCEDURE: XR CHEST 1V INDICATIONS: suspected sepsis TECHNIQUE: One view of the chest was acquired. COMPARISON: [facility], , XR CHEST 1V, 10/01/2022, 1:57. FINDINGS: Surgical changes and devices: None. Lungs and pleura: Lungs are clear. No pleural effusions or pneumothorax. Mediastinum: Mediastinal contours appear normal. Heart size is normal. Bones and chest wall: No suspicious bony lesions. Overlying soft tissues appear unremarkable. IMPRESSION: No acute cardiopulmonary abnormality is seen. ECG Data Attestation: I personally reviewed and interpreted this ECG as follows: Interpretation: Sinus rhythm Ventricular rate 81 Normal axis Normal QRS Normal QTC No ST T wave changes MDM Narrative Medical decision making narrative: Patient is nontoxic appearing. He is afebrile. Initially had heart rate in the 90s but this improved to the 60s afterwards. He has a obvious infection to his right lower extremity. It is warm to the touch. Based on his exam today I have low suspicion that there is any abscess or deep infection. I have low suspicion for DVT. Had a difficult time obtaining any sort of blood work on the patient secondary to his history of IV drug abuse. I did not feel based on his presentation today that we needed to place a central line to obtain this blood work. He has an obvious infection to his leg. He has not been on antibiotics. He did tolerate his oral antibiotics here in the ER. Potentially is going to re quire admission to the hospital however having not attempted any oral antibiotics at home we will try this initially. No indication for IV antibiotics as he is tolerating oral currently and the plan will be for discharge home. He was given 1st dose here in the ER and a prescription was sent to the pharmacy of his choice. He was advised that despite the oral antibiotics if his symptoms worsen that he does need to return to the emergency department for further evaluation. Discharge Plan Departure Patient Disposition: Home Clinical Impression: Cellulitis Instructions: DI for Cellulitis -- Adult Activity Restrictions/Additional Instructions: A prescription for antibiotics was sent to [facility] per your request. Please picked him up and start taking them as directed. Use the nausea medication as needed. You can take Tylenol for any fevers or discomfort. Return to the emergency department for new or worsening symptoms. Prescriptions: New doxycycline hyclate 100 mg tablet 100 mg PO BID 10 Days Qty: 20 0RF No Action methadone 10 mg/mL Concentrate 30 mg PO DAILY Patient Comments: Patient was going to clinic for methadone, has not been there in about a week. oxycodone 5 mg Tablet 5 mg PO Q3H PRN (Reason: Pain, Moderate (4-6)) Qty: 15 0RF Referrals: Miscellaneous,Doctor, MD [Primary Care Provider] - Stand Alone Forms: Patient Portal/API
[2023-09-14 20:19] VITALS: PULSE 68
[2023-09-14 20:20] VITALS: BP 123/73; PULSE 64; RESP 28; O2SAT 99
[2023-09-14] MEDS: DOXYCYCLINE HYCLATE 100 MG TABLET PO (20:29)
[2023-09-14 20:30] VITALS: BP 128/75; PULSE 87; RESP 24; O2SAT 99
[2023-09-14 21:00] VITALS: BP 134/73; PULSE 92; O2SAT 97
[2023-09-14] MEDS: ONDANSETRON 4 MG ODT PREPACK 1 BOTTLE MISC (21:57)
== END 2023-09-14 22:28 | disposition home or self-care (01) ==
PROVIDERS: Emergency Provider Emergency Medicine; Family Provider Orthopaedic Surgery
DX: L03.115 Cellulitis of right lower limb (principal)
CPT/HCPCS: 71045; 93005; 93010; 99283